=== PATIENT | female | born 1950 | race Two or more races ===

== ENCOUNTER 2021-07-12 19:01 | Inpatient (IN) | payer OTHER ==
[~2021-07-12] VITALS: Ht 170.2 cm; Wt 59.0 kg
[~2021-07-12 19:01] MED LIST: ALPR1TAB7; CARI350T22; HYDR500T13; LEVO50TA7; ZOLP10TA6
[2021-07-12] MEDS ORDERED: ACETAMINOPHEN 500 MG TAB PO ONE (19:30)
[2021-07-12] MEDS ORDERED: SODIUM CHLORIDE 0.9% 1,000 ML IV ONE (19:30)
[2021-07-12 20:16] LABS: Basophils # (auto) 0 10 ^3/uL (0-0.2); Basophils % (auto) 0.3 % (0.0-2.0); Eosinophils # (auto) 0 10 ^3/uL (0-0.8); Hematocrit 30.2 % (36.0-46.0); Hemoglobin 10.1 g/dL (12.2-16.2); Lymphocytes # (auto) 0.4 10 ^3/uL (0.4-5.4); Lymphocytes % (auto) 4.4 % (10.0-50.0); Mean Corpuscular Hemoglobin 30.9 pg (28.0-32.0); Mean Corpuscular Hgb Conc. 33.3 g/dL (32.0-36.0); Mean Corpuscular Volume 92.8 fL (80.0-100.0); Monocytes # (auto) 0.6 10 ^3/uL (0-1.3); Monocytes % (auto) 7.2 % (0.0-12.0); Neutrophils # (auto) 7.6 10 ^3/uL (1.6-8.6); Neutrophils % (auto) 88.1 % (37.0-80.0); Nucleated Red Blood Cells % 0.1 %; Red Blood Cells 3.26 10^6/uL (4.0-5.20); Red Cell Distribution Width 13.4 % (11.8-14.3); White Blood Cell 8.6 10^3/uL (4.4-10.8)
[2021-07-12 20:19] LABS: Albumin 2.9 g/dL (3.4-5.0); Calcium 8.1 mg/dL (8.5-10.1); Potassium 4.2 mmol/L (3.5-5.1)
[2021-07-12 20:22] LABS: BUN/Creatinine Ratio 14.3; Bilirubin, Total 0.6 mg/dL (0.2-1.0)
[2021-07-12] MEDS ORDERED: ACETAMINOPHEN 650 mg PER 20.3 mL UD PO ONE (20:30)
[2021-07-12 22:16] LABS: Urine Bacteria NONE SEEN /hpf (None Seen); Urine Blood 1+ /uL (Negative); Urine Specific Gravity 1.007 (1.001-1.035); Urine WBC <1 /hpf (0 - 5)
[2021-07-12 22:30] LABS: Amphetamine Screen, Urine NEGATIVE (NEGATIVE); Barbiturate Scree,Urine NEGATIVE (NEGATIVE); Benzodiazephine Screen, Urine POSITIVE (NEGATIVE); Cannabinoid Screen, Urine NEGATIVE (NEGATIVE); Cocaine Screen, Urine NEGATIVE (NEGATIVE); Opiate Scree,Urine POSITIVE (NEGATIVE); Phencyclidine Screen, Urine NEGATIVE (NEGATIVE)
[2021-07-12] MEDS ORDERED: levoFLOXacin 500MG 100 ML IV ONE (23:45)
[2021-07-13] MEDS ORDERED: ASPirin-EC 325mg tab PO ONE (05:00)
[2021-07-13] MEDS: levoFLOXacin 500MG 100 ML IV ONE (05:00)
[2021-07-13] MEDS ORDERED: ALPRAZolam 0.5 MG TAB PO ONE (06:00)
[2021-07-13] MEDS ORDERED: NITROGLYCERIN 0.4 MG SL TAB SL PRN (09:15)
[2021-07-13] MEDS ORDERED: MORPHINE SULFATE INJECTION 2 MG/ML SYRG IV PRN ×2 (09:15→09:45)
[2021-07-13] MEDS ORDERED: DexAMETHasone INJECTION 10 MG in D5W 5% 50 ML IV ONE (09:45)
[2021-07-13] MEDS: SODIUM CHLORIDE 0.9% 1,000 ML IV SCH ×2 (09:45→23:05)
[2021-07-13] MEDS ORDERED: traMADol HCL 50 MG TAB PO PRN (09:45)
[2021-07-13] MEDS ORDERED: ALBUTEROL SULF HFA 90MCG INH 200DOSE IN PRN (09:45)
[2021-07-13] MEDS ORDERED: ENOXAPARIN SOD 60 MG/0.6 ML SYRINGE SC ONE (09:45)
[2021-07-13] MEDS ORDERED: ACETAMINOPHEN 500 MG TAB PO PRN (09:45)
[2021-07-13] MEDS ORDERED: ONDANSETRON HCL 4 MG/2 ML VIAL IV PRN (09:45)
[2021-07-13] MEDS ORDERED: LACTULOSE 20Gm/30ML SOLN PO PRN (09:45)
[2021-07-13] MEDS ORDERED: IOHEXOL 350 MG/ML 100ML IJ ONE (09:55)
[2021-07-13] MEDS: AZITHROMYCIN 500MG/ 250ML 250 ML IV SCH ×2 (10:00→12:09)
[2021-07-13] MEDS ORDERED: BUDESONIDE (INHALATION) 180 MCG IH IN SCH (10:00)
[2021-07-13] MEDS ORDERED: ENOXAPARIN SOD 40 MG/0.4 ML SYRINGE SC SCH (10:00)
[2021-07-13] MEDS: cefTRIAXone 1GM/50ML D5W 50 ML IV SCH (10:09)
[2021-07-13 11:16] VITALS: BP 134/68
[2021-07-13] MEDS: ASCORBIC ACID 1,000 MG TAB PO SCH (11:56)
[2021-07-13] MEDS: DexAMETHasone SOD PHOS 10MG/1ML VIAL INJ IV SCH (11:57)
[2021-07-13] MEDS: CHOLECALCIFEROL (VITD3) 2,000 UNIT CAP/TAB PO SCH (11:57)
[2021-07-13] MEDS: IVERMECTIN 3 MG TAB PO SCH (12:12)
[2021-07-13] MEDS: FLORASTOR (S. BOULARDII) 250 MG CAP PO SCH ×2 (12:14→21:41)
[2021-07-13] MEDS: ASPirin 81 mg TAB PO SCH (12:15)
[2021-07-13] MEDS: ZINC SULFATE 220mg CAP or TAB PO SCH (12:15)
[2021-07-13] MEDS: PANTOPRAZOLE 40 MG TAB PO SCH (12:15)
[2021-07-13] MEDS: ENOXAPARIN SOD 60 MG/0.6 ML SYRINGE SC SCH (21:42)
[2021-07-13] MEDS: ATORVASTATIN 20 MG TAB PO SCH (21:42)
[2021-07-14] MEDS: ENOXAPARIN SOD 60 MG/0.6 ML SYRINGE SC SCH (08:16)
[2021-07-14] MEDS: CHOLECALCIFEROL (VITD3) 2,000 UNIT CAP/TAB PO SCH (08:16)
[2021-07-14] MEDS: PANTOPRAZOLE 40 MG TAB PO SCH (08:17)
[2021-07-14] MEDS: IVERMECTIN 3 MG TAB PO SCH (08:17)
[2021-07-14] MEDS: ZINC SULFATE 220mg CAP or TAB PO SCH (08:17)
[2021-07-14] MEDS: ASPirin 81 mg TAB PO SCH (08:18)
[2021-07-14] MEDS: FLORASTOR (S. BOULARDII) 250 MG CAP PO SCH ×2 (08:18→23:33)
[2021-07-14] MEDS: ASCORBIC ACID 1,000 MG TAB PO SCH (08:19)
[2021-07-14] MEDS: cefTRIAXone 1GM/50ML D5W 50 ML IV SCH (08:20)
[2021-07-14] MEDS: SODIUM CHLORIDE 0.9% 1,000 ML IV SCH (08:20)
[2021-07-14] MEDS: DexAMETHasone SOD PHOS 10MG/1ML VIAL INJ IV SCH (08:20)
[2021-07-14 08:28] LABS: Basophils # (auto) 0 10 ^3/uL (0-0.2); Basophils % (auto) 0.1 % (0.0-2.0); Eosinophils # (auto) 0 10 ^3/uL (0-0.8); Eosinophils % (auto) 0.1 % (0.0-7.0); Hematocrit 30.4 % (36.0-46.0); Hemoglobin 10.5 g/dL (12.2-16.2); Lymphocytes # (auto) 1.1 10 ^3/uL (0.4-5.4); Lymphocytes % (auto) 12.1 % (10.0-50.0); Mean Corpuscular Hemoglobin 31.4 pg (28.0-32.0); Mean Corpuscular Hgb Conc. 34.4 g/dL (32.0-36.0); Mean Corpuscular Volume 91.2 fL (80.0-100.0); Monocytes # (auto) 0.9 10 ^3/uL (0-1.3); Monocytes % (auto) 9.8 % (0.0-12.0); Neutrophils % (auto) 77.9 % (37.0-80.0); Nucleated Red Blood Cells % 0.1 %; Red Blood Cells 3.34 10^6/uL (4.0-5.20); Red Cell Distribution Width 13.4 % (11.8-14.3)
[2021-07-14 08:45] LABS: Albumin 2.5 g/dL (3.4-5.0); Calcium 8.9 mg/dL (8.5-10.1); Potassium 3.3 mmol/L (3.5-5.1)
[2021-07-14 08:52] LABS: BUN/Creatinine Ratio 17.8; Bilirubin, Total 0.6 mg/dL (0.2-1.0); Total Protein 6.3 g/dL (6.4-8.2)
[2021-07-14] MEDS: LOPERAMIDE HCL 2 MG CAP PO PRN ×3 (16:37→20:16)
[2021-07-14] MEDS ORDERED: ALPRAZolam 0.5 MG TAB PO PRN (18:30)
[2021-07-14] MEDS ORDERED: ZOLPIDEM TARTRATE 5 MG TAB PO PRN (18:30)
[2021-07-14] MEDS ORDERED: FAMOTIDINE 20 MG TAB PO SCH (22:00)
[2021-07-14] MEDS ORDERED: CHOLESTYRAMINE 4 GM POWDER PO SCH (23:00)
[2021-07-14] MEDS: ATORVASTATIN 20 MG TAB PO SCH (23:33)
[2021-07-15] MEDS: SODIUM CHLORIDE 0.9% 1,000 ML IV SCH (02:19)
[2021-07-15] MEDS: LOPERAMIDE HCL 2 MG CAP PO PRN (04:15)
[2021-07-15 07:39] LABS: Basophils # (auto) 0 10 ^3/uL (0-0.2); Basophils % (auto) 0.1 % (0.0-2.0); Eosinophils # (auto) 0 10 ^3/uL (0-0.8); Eosinophils % (auto) 0.1 % (0.0-7.0); Hemoglobin 10.8 g/dL (12.2-16.2); Lymphocytes % (auto) 12.2 % (10.0-50.0); Mean Corpuscular Hemoglobin 31.6 pg (28.0-32.0); Mean Corpuscular Hgb Conc. 34.9 g/dL (32.0-36.0); Mean Corpuscular Volume 90.6 fL (80.0-100.0); Monocytes # (auto) 0.9 10 ^3/uL (0-1.3); Neutrophils # (auto) 6.5 10 ^3/uL (1.6-8.6); Neutrophils % (auto) 76.6 % (37.0-80.0); Nucleated Red Blood Cells % 0.1 %; Red Blood Cells 3.42 10^6/uL (4.0-5.20); Red Cell Distribution Width 13.3 % (11.8-14.3); White Blood Cell 8.5 10^3/uL (4.4-10.8)
[2021-07-15 07:45] VITALS: BP 142/78
[2021-07-15 07:58] LABS: Calcium 8.8 mg/dL (8.5-10.1); Partial Thromboplastin Time 33.5 sec (23.6-33.0); Potassium 3.4 mmol/L (3.5-5.1)
[2021-07-15 08:02] LABS: BUN/Creatinine Ratio 23.9
[2021-07-15] MEDS ORDERED: LIDOCAINE 2%HCL (LOCAL ANESTH.) INJ 20ML MDV ONE (09:03)
[2021-07-15] MEDS ORDERED: IODIXANOL 320MG/ML 100ML BTL IV ONE (09:03)
[2021-07-15] MEDS ORDERED: fentaNYL CITRATE 100 MCG/2 ML VL ONE (09:13)
[2021-07-15] MEDS ORDERED: HEPARIN SODIUM (PORCINE) 5000 UNITS/ML 1ML VIAL ONE (09:13)
[2021-07-15] MEDS ORDERED: MIDAZOLAM HCL 2MG/2ML 2ml VIAL (1mg/ml) ONE ×2 (09:13→09:35)
[2021-07-15] MEDS ORDERED: VERAPAMIL 2.5MG/ML INJ 2ML VIAL IV ONE (09:13)
[2021-07-15] MEDS ORDERED: SODIUM CHL 0.9% 0 ML ONE (09:13)
[2021-07-15] MEDS ORDERED: ANGIOMAX 250 MG VIAL IV ONE (09:13)
[2021-07-15] MEDS ORDERED: ENOXAPARIN SOD 40 MG/0.4 ML SYRINGE SC SCH (10:00)
[2021-07-15] MEDS ORDERED: ZOLP10TA PO (10:36)
[2021-07-15] MEDS ORDERED: LEVO50CA3 PO (10:36)
[2021-07-15] MEDS ORDERED: CARI350T23 PO (10:45)
[2021-07-15] MEDS ORDERED: ALPR1TAB2 PO (10:45)
[2021-07-15] MEDS ORDERED: ACET-1156 PO (12:49)
== END 2021-07-15 12:45 | disposition home health service (06) | DRG 286 ==
LOC: ER 19:01 → EDBD 19:01 → TELE 07-13 09:40
PROVIDERS: ADMIT Internal Medicine; ATTEND Hospitalist
PROC: 4A023N7 Measurement of Cardiac Sampling and Pressure, Left Heart, Percutaneous Approach (ICD-10-PCS; principal; 2021-07-15)
PROC: B211YZZ Fluoroscopy of Multiple Coronary Arteries using Other Contrast (ICD-10-PCS; 2021-07-15)
PROC: B215YZZ Fluoroscopy of Left Heart using Other Contrast (ICD-10-PCS; 2021-07-15)
DX: I25.10 Atherosclerotic heart disease of native coronary artery without angina pectoris (principal); G92 Toxic encephalopathy; E83.51 Hypocalcemia; R29.6 Repeated falls; F31.9 Bipolar disorder, unspecified; D64.9 Anemia, unspecified; M51.9 Unspecified thoracic, thoracolumbar and lumbosacral intervertebral disc disorder; I07.1 Rheumatic tricuspid insufficiency; E78.5 Hyperlipidemia, unspecified; Z20.822 Contact with and (suspected) exposure to COVID-19; E07.9 Disorder of thyroid, unspecified; F41.9 Anxiety disorder, unspecified
CPT/HCPCS: 36415; 36600; 70450; 70551; 71045; 71275; 72131; 80048; 80053; 80061; 80307; 80320; 81001; 82550; 82728; 82805; 83036; 83605; 83880; 84443; 84484; 85025; 85379; 85610; 85652; 85730; 86141; 87040; 87426; 87493; 93005; 93306; 93458; 93971; 96361; 96365; 99152; G0378; J0696; J1100; J1956; J2250; J7060; Q9967

== ENCOUNTER 2022-02-16 19:29 | Emergency (ER) | payer OTHER ==
[~2022-02-16] VITALS: Ht 165.1 cm; Wt 72.6 kg
[~2022-02-16 19:29] MED LIST changes: +ACET-1156 PO; +ALPR1TAB2 PO; -ALPR1TAB7; -CARI350T22; +CARI350T23 PO; -HYDR500T13; +LEVO50CA3 PO; -LEVO50TA7; +ZOLP10TA PO; -ZOLP10TA6
[2022-02-16 21:06] LABS: Urine Bacteria MOD /hpf (None Seen); Urine Blood 1+ /uL (Negative); Urine Hyaline Cast FEW /lpf (0 - 2); Urine Specific Gravity 1.016 (1.001-1.035); Urine WBC 31 /hpf (0 - 5); Urine WBC Clumps PRESENT /hpf (None Seen)
[2022-02-16 21:11] LABS: Basophils # (auto) 0.1 10 ^3/uL (0-0.2); Basophils % (auto) 1.1 % (0.0-2.0); Eosinophils # (auto) 0 10 ^3/uL (0-0.8); Eosinophils % (auto) 0.1 % (0.0-7.0); Hematocrit 31.2 % (36.0-46.0); Hemoglobin 10.4 g/dL (12.2-16.2); Lymphocytes # (auto) 1.2 10 ^3/uL (0.4-5.4); Mean Corpuscular Hemoglobin 29.6 pg (28.0-32.0); Mean Corpuscular Hgb Conc. 33.3 g/dL (32.0-36.0); Mean Corpuscular Volume 88.9 fL (80.0-100.0); Monocytes # (auto) 0.8 10 ^3/uL (0-1.3); Monocytes % (auto) 10.5 % (0.0-12.0); Neutrophils # (auto) 5.5 10 ^3/uL (1.6-8.6); Neutrophils % (auto) 72.3 % (37.0-80.0); Nucleated Red Blood Cells % 0.1 %; Red Blood Cells 3.51 10^6/uL (4.0-5.20); Red Cell Distribution Width 14.6 % (11.8-14.3); White Blood Cell 7.6 10^3/uL (4.4-10.8)
[2022-02-16 21:16] VITALS: BP 119/75
[2022-02-16 21:25] LABS: Albumin 3.6 g/dL (3.4-5.0); BUN/Creatinine Ratio 10.8; Potassium 4.3 mmol/L (3.5-5.1)
[2022-02-16 21:49] LABS: Bilirubin, Total 0.4 mg/dL (0.2-1.0)
[2022-02-16] MEDS ORDERED: CEPH-509 PO (22:07)
== END 2022-02-16 22:21 | disposition home or self-care (01) ==
LOC: EDBD 19:29 → ER 19:31
DX: R53.1 Weakness (principal); N39.0 Urinary tract infection, site not specified; E03.9 Hypothyroidism, unspecified; E78.5 Hyperlipidemia, unspecified; Z79.899 Other long term (current) drug therapy
CPT/HCPCS: 36415; 71045; 80053; 81001; 84484; 85025; 93005

== ENCOUNTER 2022-02-24 15:49 | Inpatient (IN) | payer OTHER ==
[~2022-02-24] VITALS: Ht 165.1 cm; Wt 59.0 kg
[~2022-02-24 15:49] MED LIST changes: +CEPH-509 PO
[2022-02-24] MEDS ORDERED: SODIUM CHLORIDE 0.9% 500 ML IV ONE (16:00)
[2022-02-24] MEDS ORDERED: SODIUM CHLORIDE 0.9% 1,000 ML IV ONE (16:00)
[2022-02-24 16:34] LABS: Basophils # (auto) 0 10 ^3/uL (0-0.2); Basophils % (auto) 0.7 % (0.0-2.0); Eosinophils # (auto) 0 10 ^3/uL (0-0.8); Eosinophils % (auto) 0.7 % (0.0-7.0); Hematocrit 29.9 % (36.0-46.0); Hemoglobin 9.9 g/dL (12.2-16.2); Lymphocytes # (auto) 1.4 10 ^3/uL (0.4-5.4); Lymphocytes % (auto) 26.4 % (10.0-50.0); Mean Corpuscular Hemoglobin 29.2 pg (28.0-32.0); Mean Corpuscular Hgb Conc. 33.1 g/dL (32.0-36.0); Mean Corpuscular Volume 88.1 fL (80.0-100.0); Monocytes # (auto) 0.6 10 ^3/uL (0-1.3); Monocytes % (auto) 12.3 % (0.0-12.0); Neutrophils # (auto) 3.1 10 ^3/uL (1.6-8.6); Neutrophils % (auto) 59.9 % (37.0-80.0); Red Cell Distribution Width 14.6 % (11.8-14.3); White Blood Cell 5.2 10^3/uL (4.4-10.8)
[2022-02-24 16:56] LABS: Albumin 3.4 g/dL (3.4-5.0); BUN/Creatinine Ratio 7.8; Calcium 8.3 mg/dL (8.5-10.1); Magnesium 1.9 mg/dL (1.6-2.6); Potassium 3.5 mmol/L (3.5-5.1)
[2022-02-24 16:59] LABS: Bilirubin, Total 0.3 mg/dL (0.2-1.0); Total Protein 6.6 g/dL (6.4-8.2)
[2022-02-24] MEDS ORDERED: LABETALOL HCL 5 MG/ML 4ML SYRINGE IV ONE (17:30)
[2022-02-24 18:36] LABS: Urine Bacteria NONE SEEN /hpf (None Seen); Urine Blood Negative /uL (Negative); Urine Specific Gravity 1.014 (1.001-1.035); Urine WBC 1 /hpf (0 - 5)
[2022-02-24] MEDS ORDERED: ACETAMINOPHEN 325 MG TAB PO PRN (21:30)
[2022-02-24] MEDS ORDERED: MORPHINE SULFATE INJECTION 2 MG/ML SYRG IV PRN (21:30)
[2022-02-24] MEDS ORDERED: ONDANSETRON HCL 4 MG/2 ML VIAL IV PRN (21:30)
[2022-02-24] MEDS ORDERED: TEMAZEPAM 15 MG CAP PO PRN (21:30)
[2022-02-24] MEDS ORDERED: NITROGLYCERIN 0.4 MG SL TAB SL PRN (21:30)
[2022-02-24] MEDS ORDERED: cloNIDine HCL 0.1 MG TAB PO PRN (21:30)
[2022-02-24] MEDS ORDERED: ATORVASTATIN 20 MG TAB PO SCH (22:00)
[2022-02-24 22:03] LABS: Hematocrit 30.7 % (36.0-46.0); Hemoglobin 9.9 g/dL (12.2-16.2)
[2022-02-25 05:00] VITALS: BP 143/81
[2022-02-25] MEDS ORDERED: LEVOTHYROXINE SODIUM 50 MCG TAB PO SCH (07:00)
[2022-02-25] MEDS ORDERED: buPROPion HCL 75 MG TAB PO SCH (07:00)
[2022-02-25 08:59] VITALS: BP 148/89
[2022-02-25] MEDS ORDERED: LORazepam 2MG/ML-1ML VIAL IV PRN (09:00)
[2022-02-25] MEDS ORDERED: ENOXAPARIN SOD 40 MG/0.4 ML SYRINGE SC SCH (10:00)
[2022-02-25] MEDS ORDERED: PANTOPRAZOLE 40 MG TAB PO SCH (10:00)
[2022-02-25] MEDS ORDERED: busPIRone HCL 10 MG TAB PO SCH (10:00)
[2022-02-25] MEDS ORDERED: ASPirin 81 mg TAB PO SCH (10:00)
[2022-02-25 13:00] VITALS: BP 151/76
[2022-02-25 14:56] VITALS: BP 151/96
== END 2022-02-25 17:00 | disposition home or self-care (01) | DRG 948 ==
LOC: EDBD 15:49 → ER 15:49 → EDUNIT# 15:49 → TELE 21:17 → TELE-EAST 23:31
PROVIDERS: ADMIT Nurse Practitioner; ATTEND Internal Medicine Geriatric Medicine
DX: R53.1 Weakness (principal); I10 Essential (primary) hypertension; E03.9 Hypothyroidism, unspecified; E78.5 Hyperlipidemia, unspecified; F31.9 Bipolar disorder, unspecified; F43.10 Post-traumatic stress disorder, unspecified; G47.00 Insomnia, unspecified; Z20.822 Contact with and (suspected) exposure to COVID-19; Z82.49 Family history of ischemic heart disease and other diseases of the circulatory system
CPT/HCPCS: 36415; 70450; 70551; 71045; 80053; 81001; 83735; 84484; 85014; 85018; 85025; 93005; 96361; 96374; 97163; G0378; J3490

== ENCOUNTER 2022-06-10 23:33 | Inpatient (IN) | payer OTHER ==
[~2022-06-10] VITALS: Ht 165.1 cm; Wt 67.2 kg
[2022-06-11 00:34] LABS: Basophils # (auto) 0 10 ^3/uL (0-0.2); Basophils % (auto) 0.4 % (0.0-2.0); Eosinophils # (auto) 0.1 10 ^3/uL (0-0.8); Eosinophils % (auto) 0.6 % (0.0-7.0); Hematocrit 20.1 % (36.0-46.0); Lymphocytes # (auto) 0.9 10 ^3/uL (0.4-5.4); Lymphocytes % (auto) 7.1 % (10.0-50.0); Mean Corpuscular Hemoglobin 24.9 pg (28.0-32.0); Mean Corpuscular Hgb Conc. 31.7 g/dL (32.0-36.0); Mean Corpuscular Volume 78.4 fL (80.0-100.0); Monocytes % (auto) 7.6 % (0.0-12.0); Neutrophils # (auto) 10.7 10 ^3/uL (1.6-8.6); Neutrophils % (auto) 84.3 % (37.0-80.0); Red Blood Cells 2.56 10^6/uL (4.0-5.20); Red Cell Distribution Width 15.5 % (11.8-14.3); White Blood Cell 12.7 10^3/uL (4.4-10.8)
[2022-06-11 00:49] LABS: Albumin 2.5 g/dL (3.4-5.0); BUN/Creatinine Ratio 11.4; Calcium 8.2 mg/dL (8.5-10.1); INR 1.06 (0.9-1.15); Magnesium 2.1 mg/dL (1.6-2.6); Partial Thromboplastin Time 37.6 sec (24.6-33.4)
[2022-06-11 00:51] LABS: Bilirubin, Total 0.2 mg/dL (0.2-1.0); Total Protein 6.9 g/dL (6.4-8.2)
[2022-06-11 00:52] LABS: Hemoglobin 6.4 g/dL (12.2-16.2)
[2022-06-11] MEDS ORDERED: AZITHROMYCIN 500MG/ 250ML 250 ML IV ONE (02:15)
[2022-06-11] MEDS ORDERED: cefTRIAXone 1GM/50ML D5W 50 ML IV ONE (02:15)
[2022-06-11] MEDS ORDERED: POTASSIUM CHL 20 Meq TABLET PO ONE (04:30)
[2022-06-11] MEDS ORDERED: MORPHINE SULFATE INJ 2 MG/ml SYRG IV PRN (04:30)
[2022-06-11] MEDS ORDERED: NITROGLYCERIN 0.4 MG SL TAB SL PRN (04:30)
[2022-06-11] MEDS ORDERED: ONDANSETRON HCL 4 MG/2 ML VIAL IV PRN (04:30)
[2022-06-11] MEDS ORDERED: ACETAMINOPHEN 325 MG TAB PO PRN (04:30)
[2022-06-11] MEDS: CARBIDOPA W LEVODOPA 25/100mg TABLET PO SCH ×3 (05:51→21:57)
[2022-06-11 06:13] VITALS: BP 124/76
[2022-06-11 06:28] VITALS: BP 115/63
[2022-06-11] MEDS: buPROPion HCL 75 MG TAB PO SCH ×2 (06:33→19:55)
[2022-06-11] MEDS: LEVOTHYROXINE SODIUM 50 MCG TAB PO SCH (06:33)
[2022-06-11 07:00] VITALS: BP 114/63
[2022-06-11 08:00] VITALS: BP 119/69
[2022-06-11] MEDS: ENOXAPARIN SOD 40 MG/0.4 ML SYRINGE SC SCH (10:00)
[2022-06-11] MEDS: PANTOPRAZOLE 40 MG TAB PO SCH (10:00)
[2022-06-11] MEDS: busPIRone HCL 10 MG TAB PO SCH ×2 (10:00→21:57)
[2022-06-11 16:09] LABS: Basophils # (auto) 0 10 ^3/uL (0-0.2); Basophils % (auto) 0.3 % (0.0-2.0); Hematocrit 22.4 % (36.0-46.0); Monocytes # (auto) 0.9 10 ^3/uL (0-1.3)
[2022-06-11 16:12] LABS: Eosinophils # (auto) 0 10 ^3/uL (0-0.8); Eosinophils % (auto) 0.3 % (0.0-7.0); Lymphocytes # (auto) 0.9 10 ^3/uL (0.4-5.4); Lymphocytes % (auto) 6.9 % (10.0-50.0); Mean Corpuscular Hemoglobin 24.7 pg (28.0-32.0); Mean Corpuscular Hgb Conc. 31.3 g/dL (32.0-36.0); Monocytes % (auto) 6.9 % (0.0-12.0); Neutrophils # (auto) 11.1 10 ^3/uL (1.6-8.6); Neutrophils % (auto) 85.6 % (37.0-80.0); Red Blood Cells 2.83 10^6/uL (4.0-5.20); Red Cell Distribution Width 15.4 % (11.8-14.3)
[2022-06-11] MEDS: AZITHROMYCIN 500MG/ 250ML 250 ML IV SCH (21:57)
[2022-06-11] MEDS: cefTRIAXone 1GM/50ML D5W 50 ML IV SCH (21:57)
[2022-06-11 22:00] VITALS: BP 138/72
[2022-06-11] MEDS ORDERED: GABA300C10 PO (22:26)
[2022-06-11] MEDS ORDERED: BUSP15TA90 PO (22:26)
[2022-06-12 02:52] LABS: Urine Bacteria FEW /hpf (None Seen); Urine Blood Negative /uL (Negative); Urine Specific Gravity 1.006 (1.001-1.035); Urine WBC 2 /hpf (0 - 5)
[2022-06-12 05:00] VITALS: BP 153/86
[2022-06-12] MEDS: CARBIDOPA W LEVODOPA 25/100mg TABLET PO SCH ×3 (06:08→21:39)
[2022-06-12 06:19] LABS: Basophils % (auto) 0.5 % (0.0-2.0); Eosinophils # (auto) 0.1 10 ^3/uL (0-0.8); Eosinophils % (auto) 0.8 % (0.0-7.0); Hematocrit 22.9 % (36.0-46.0); Monocytes % (auto) 9.8 % (0.0-12.0); Red Blood Cells 2.92 10^6/uL (4.0-5.20)
[2022-06-12 06:22] LABS: Basophils # (auto) 0 10 ^3/uL (0-0.2); Hemoglobin 7.4 g/dL (12.2-16.2); Lymphocytes % (auto) 9.2 % (10.0-50.0); Mean Corpuscular Hemoglobin 25.2 pg (28.0-32.0); Mean Corpuscular Hgb Conc. 32.1 g/dL (32.0-36.0); Mean Corpuscular Volume 78.3 fL (80.0-100.0); Neutrophils # (auto) 8.5 10 ^3/uL (1.6-8.6); Neutrophils % (auto) 79.7 % (37.0-80.0); Red Cell Distribution Width 15.5 % (11.8-14.3); White Blood Cell 10.7 10^3/uL (4.4-10.8)
[2022-06-12 06:23] LABS: INR 1.04 (0.9-1.15); Partial Thromboplastin Time 34.4 sec (24.6-33.4)
[2022-06-12] MEDS: LEVOTHYROXINE SODIUM 50 MCG TAB PO SCH (06:33)
[2022-06-12] MEDS: buPROPion HCL 75 MG TAB PO SCH ×2 (06:33→18:46)
[2022-06-12 06:34] LABS: Albumin 2.1 g/dL (3.4-5.0); BUN/Creatinine Ratio 10.3; Calcium 8.3 mg/dL (8.5-10.1); Potassium 3.4 mmol/L (3.5-5.1)
[2022-06-12 06:37] LABS: Bilirubin, Total 0.3 mg/dL (0.2-1.0); Total Protein 6.8 g/dL (6.4-8.2)
[2022-06-12 09:16] VITALS: BP 141/84
[2022-06-12] MEDS: ENOXAPARIN SOD 40 MG/0.4 ML SYRINGE SC SCH (10:00)
[2022-06-12] MEDS: FERROUS SULFATE 325mg EC TAB PO SCH (10:48)
[2022-06-12] MEDS: busPIRone HCL 10 MG TAB PO SCH ×2 (10:48→21:39)
[2022-06-12] MEDS: PANTOPRAZOLE 40 MG TAB PO SCH (10:49)
[2022-06-12 12:27] VITALS: BP 147/82
[2022-06-12] MEDS ORDERED: POTASSIUM CHL 20 Meq TABLET PO ONE (14:30)
[2022-06-12] MEDS: ALPRAZolam 0.25 MG TAB PO PRN (15:17)
[2022-06-12 16:58] VITALS: BP 153/89
[2022-06-12] MEDS: cefTRIAXone 1GM/50ML D5W 50 ML IV SCH (21:19)
[2022-06-12 21:54] VITALS: BP 149/83
[2022-06-12] MEDS: AZITHROMYCIN 500MG/ 250ML 250 ML IV SCH (22:36)
[2022-06-13 05:00] VITALS: BP 152/91
[2022-06-13 05:06] LABS: Basophils # (auto) 0.1 10 ^3/uL (0-0.2); Basophils % (auto) 0.8 % (0.0-2.0); Lymphocytes # (auto) 0.9 10 ^3/uL (0.4-5.4); Monocytes # (auto) 0.8 10 ^3/uL (0-1.3)
[2022-06-13 05:08] LABS: Eosinophils # (auto) 0.1 10 ^3/uL (0-0.8); Eosinophils % (auto) 0.6 % (0.0-7.0); Hemoglobin 7.2 g/dL (12.2-16.2); Lymphocytes % (auto) 9.9 % (10.0-50.0); Mean Corpuscular Hemoglobin 24.5 pg (28.0-32.0); Mean Corpuscular Hgb Conc. 31.5 g/dL (32.0-36.0); Mean Corpuscular Volume 77.9 fL (80.0-100.0); Monocytes % (auto) 8.7 % (0.0-12.0); Neutrophils # (auto) 7.4 10 ^3/uL (1.6-8.6); Red Blood Cells 2.95 10^6/uL (4.0-5.20); Red Cell Distribution Width 15.7 % (11.8-14.3); White Blood Cell 9.3 10^3/uL (4.4-10.8)
[2022-06-13] MEDS: CARBIDOPA W LEVODOPA 25/100mg TABLET PO SCH (05:28)
[2022-06-13 05:34] LABS: BUN/Creatinine Ratio 13.2; Potassium 3.9 mmol/L (3.5-5.1)
[2022-06-13] MEDS: LEVOTHYROXINE SODIUM 50 MCG TAB PO SCH (06:30)
[2022-06-13] MEDS: buPROPion HCL 75 MG TAB PO SCH (06:30)
[2022-06-13 08:00] VITALS: BP 150/80
[2022-06-13] MEDS: ALPRAZolam 0.25 MG TAB PO PRN (09:50)
[2022-06-13] MEDS: FERROUS SULFATE 325mg EC TAB PO SCH (09:50)
[2022-06-13] MEDS: busPIRone HCL 10 MG TAB PO SCH (09:51)
[2022-06-13] MEDS: PANTOPRAZOLE 40 MG TAB PO SCH (09:51)
[2022-06-13] MEDS ORDERED: FER325T PO (12:42)
[2022-06-13] MEDS ORDERED: DOCU-94 PO (12:42)
[2022-06-13] MEDS ORDERED: LEVO500T31 PO (12:42)
[2022-06-13] MEDS ORDERED: PANT40TA2 PO (12:42)
[2022-06-13 13:00] VITALS: BP 146/86
[2022-06-13 15:21] VITALS: BP 146/86
== END 2022-06-13 18:12 | disposition home health service (06) | DRG 193 ==
LOC: ER 23:33 → EDBD 23:33 → EDUNIT# 23:33 → TELE 06-11 04:30 → TELE-WESTW 06-11 21:31
PROVIDERS: ADMIT Nurse Practitioner; ATTEND Internal Medicine Geriatric Medicine
PROC: 30233N1 Transfusion of Nonautologous Red Blood Cells into Peripheral Vein, Percutaneous Approach (ICD-10-PCS; principal; 2022-06-11)
DX: J18.9 Pneumonia, unspecified organism (principal); G93.41 Metabolic encephalopathy; J98.11 Atelectasis; G20 Parkinson's disease; D75.839 Thrombocytosis, unspecified; D64.9 Anemia, unspecified; E78.5 Hyperlipidemia, unspecified; Z96.649 Presence of unspecified artificial hip joint; F31.9 Bipolar disorder, unspecified; E87.6 Hypokalemia; E03.9 Hypothyroidism, unspecified; D50.9 Iron deficiency anemia, unspecified; Z20.822 Contact with and (suspected) exposure to COVID-19
CPT/HCPCS: 36415; 70450; 71045; 71250; 72125; 74176; 80048; 80053; 81001; 82270; 83735; 83880; 84484; 85025; 85610; 85730; 86850; 86900; 86901; 86920; 93005; 96365; 96366; 96368; 96372; 97116; 97163; 97530; G0378; J0696

== ENCOUNTER 2022-06-18 15:01 | Inpatient (IN) | payer OTHER ==
[~2022-06-18] VITALS: Ht 162.6 cm; Wt 63.9 kg
[~2022-06-18 15:01] MED LIST changes: +BUSP15TA90 PO; -CEPH-509 PO; +DOCU-94 PO; +FER325T PO; +GABA300C10 PO; +LEVO500T31 PO; +PANT40TA2 PO
[2022-06-18] MEDS ORDERED: SODIUM CHLORIDE 0.9% 1,000 ML IV ONE (16:45)
[2022-06-18] MEDS ORDERED: SODIUM CHLORIDE 0.9% 500 ML IVB ONE (16:45)
[2022-06-18] MEDS ORDERED: LORazepam 0.5 MG TAB PO ONE (18:30)
[2022-06-18 18:54] LABS: Basophils # (auto) 0.1 10 ^3/uL (0-0.2); Basophils % (auto) 0.7 % (0.0-2.0); Eosinophils # (auto) 0 10 ^3/uL (0-0.8); Eosinophils % (auto) 0.2 % (0.0-7.0); Lymphocytes # (auto) 1.2 10 ^3/uL (0.4-5.4); Mean Corpuscular Hgb Conc. 31.1 g/dL (32.0-36.0); Monocytes # (auto) 0.5 10 ^3/uL (0-1.3); Neutrophils # (auto) 8.2 10 ^3/uL (1.6-8.6)
[2022-06-18 18:57] LABS: Hematocrit 21.9 % (36.0-46.0); Lymphocytes % (auto) 11.6 % (10.0-50.0); Mean Corpuscular Hemoglobin 24.8 pg (28.0-32.0); Mean Corpuscular Volume 79.7 fL (80.0-100.0); Neutrophils % (auto) 82.5 % (37.0-80.0); Nucleated Red Blood Cells % 0.1 %; Red Blood Cells 2.75 10^6/uL (4.0-5.20)
[2022-06-18 19:01] LABS: Hemoglobin 6.8 g/dL (12.2-16.2)
[2022-06-18 19:03] LABS: Urine Bacteria NONE SEEN /hpf (None Seen); Urine Blood Negative /uL (Negative); Urine Specific Gravity 1.007 (1.001-1.035); Urine WBC <1 /hpf (0 - 5)
[2022-06-18 19:12] LABS: Albumin 2.3 g/dL (3.4-5.0); Calcium 8.3 mg/dL (8.5-10.1); Potassium 3.9 mmol/L (3.5-5.1)
[2022-06-18 19:18] LABS: BUN/Creatinine Ratio 9.1; Bilirubin, Total 0.2 mg/dL (0.2-1.0); Total Protein 6.5 g/dL (6.4-8.2)
[2022-06-18 19:19] LABS: Alcohol, Urine < 3.0 mg/dL (0-10); Amphetamine Screen, Urine NEGATIVE (NEGATIVE); Barbiturate Scree,Urine NEGATIVE (NEGATIVE); Benzodiazephine Screen, Urine POSITIVE (NEGATIVE); Cannabinoid Screen, Urine NEGATIVE (NEGATIVE); Cocaine Screen, Urine NEGATIVE (NEGATIVE); Opiate Scree,Urine NEGATIVE (NEGATIVE); Phencyclidine Screen, Urine NEGATIVE (NEGATIVE)
[2022-06-18] MEDS ORDERED: AZITHROMYCIN 500MG/ 250ML 250 ML IV ONE (21:15)
[2022-06-18] MEDS ORDERED: VANCOMYCIN 1GM/250ML 250 ML IV ONE (21:15)
[2022-06-18] MEDS: TEMAZEPAM 15 MG CAP PO PRN (22:16)
[2022-06-19] VITALS (11 sets, daily range): BP systolic 122–152; BP diastolic 75–94
[2022-06-19] MEDS ORDERED: TEMAZEPAM 15 MG CAP PO ONE (01:15)
[2022-06-19] MEDS ORDERED: INFLUENZA QUAD 2021-2022 0.5 ML SYRG IM ONE (04:00)
[2022-06-19] MEDS ORDERED: PNEUMOCOCCAL VACC POLYS 25 MCG/0.5 ML VIAL IM ONE (04:00)
[2022-06-19] MEDS: LEVOTHYROXINE SODIUM 50 MCG TAB PO SCH (06:23)
[2022-06-19 07:02] LABS: Basophils # (auto) 0.1 10 ^3/uL (0-0.2); Eosinophils # (auto) 0.1 10 ^3/uL (0-0.8); Hemoglobin 7.8 g/dL (12.2-16.2); Red Cell Distribution Width 16.3 % (11.8-14.3); White Blood Cell 8.5 10^3/uL (4.4-10.8)
[2022-06-19 07:04] LABS: Basophils % (auto) 1.1 % (0.0-2.0); Eosinophils % (auto) 0.6 % (0.0-7.0); Hematocrit 23.9 % (36.0-46.0); Lymphocytes # (auto) 1.4 10 ^3/uL (0.4-5.4); Lymphocytes % (auto) 16.8 % (10.0-50.0); Mean Corpuscular Hgb Conc. 32.4 g/dL (32.0-36.0); Mean Corpuscular Volume 80.1 fL (80.0-100.0); Monocytes # (auto) 0.9 10 ^3/uL (0-1.3); Monocytes % (auto) 10.1 % (0.0-12.0); Neutrophils # (auto) 6.1 10 ^3/uL (1.6-8.6); Neutrophils % (auto) 71.4 % (37.0-80.0); Red Blood Cells 2.98 10^6/uL (4.0-5.20)
[2022-06-19 07:14] LABS: Albumin 2.2 g/dL (3.4-5.0); BUN/Creatinine Ratio 10.5; Potassium 3.7 mmol/L (3.5-5.1)
[2022-06-19 07:16] LABS: Bilirubin, Total 0.4 mg/dL (0.2-1.0); Total Protein 6.1 g/dL (6.4-8.2)
[2022-06-19] MEDS: cefTRIAXone 1GM/50ML D5W 50 ML IV SCH (09:08)
[2022-06-19] MEDS ORDERED: PANTOPRAZOLE 40 MG TAB PO SCH (10:00)
[2022-06-19] MEDS: AZITHROMYCIN 500MG/ 250ML 250 ML IV SCH (12:15)
[2022-06-19] MEDS ORDERED: ALPRAZolam 0.25 MG TAB PO ONE (15:45)
[2022-06-19] MEDS: ONDANSETRON HCL 4 MG/2 ML VIAL IV PRN (19:52)
[2022-06-19] MEDS: ALPRAZolam 0.25 MG TAB PO PRN (22:21)
[2022-06-20 05:00] VITALS: BP 140/70
[2022-06-20 05:18] LABS: Basophils # (auto) 0.1 10 ^3/uL (0-0.2); Eosinophils # (auto) 0.1 10 ^3/uL (0-0.8); Hemoglobin 8.5 g/dL (12.2-16.2); Lymphocytes # (auto) 1.3 10 ^3/uL (0.4-5.4); Red Cell Distribution Width 16.3 % (11.8-14.3)
[2022-06-20 05:19] LABS: Basophils % (auto) 0.9 % (0.0-2.0); Hematocrit 26.8 % (36.0-46.0); Mean Corpuscular Hemoglobin 25.6 pg (28.0-32.0); Mean Corpuscular Hgb Conc. 31.8 g/dL (32.0-36.0); Mean Corpuscular Volume 80.4 fL (80.0-100.0); Monocytes # (auto) 0.8 10 ^3/uL (0-1.3); Monocytes % (auto) 10.4 % (0.0-12.0); Neutrophils # (auto) 5.8 10 ^3/uL (1.6-8.6); Neutrophils % (auto) 71.7 % (37.0-80.0); Red Blood Cells 3.33 10^6/uL (4.0-5.20); White Blood Cell 8.2 10^3/uL (4.4-10.8)
[2022-06-20 05:37] LABS: BUN/Creatinine Ratio 7.1; Calcium 8.3 mg/dL (8.5-10.1); Magnesium 1.9 mg/dL (1.6-2.6); Potassium 3.6 mmol/L (3.5-5.1)
[2022-06-20] MEDS: LEVOTHYROXINE SODIUM 50 MCG TAB PO SCH (06:25)
[2022-06-20 08:00] VITALS: BP 140/70
[2022-06-20 08:25] LABS: INR 1.04 (0.9-1.15); Partial Thromboplastin Time 33.3 sec (24.6-33.4)
[2022-06-20] MEDS: cefTRIAXone 1GM/50ML D5W 50 ML IV SCH (08:30)
[2022-06-20] MEDS ORDERED: diphenhdrAMINE HCL 50 MG/1 ML VL ONE (08:38)
[2022-06-20] MEDS ORDERED: fentaNYL CITRATE 100 MCG/2 ML VL ONE (08:38)
[2022-06-20] MEDS ORDERED: MIDAZOLAM HCL 5 MG/ML-1ML VIAL ONE (08:38)
[2022-06-20] MEDS ORDERED: LIDOCAINE VISCOUS 2% 15ML UD ONE (08:46)
[2022-06-20 09:00] VITALS: BP 128/74
[2022-06-20] MEDS: PANTOPRAZOLE 40 MG TAB PO SCH ×2 (09:50→21:42)
[2022-06-20] MEDS: AZITHROMYCIN 500MG/ 250ML 250 ML IV SCH (09:50)
[2022-06-20 13:00] VITALS: BP 122/70
[2022-06-20] MEDS: ALPRAZolam 0.25 MG TAB PO PRN (16:25)
[2022-06-20 16:49] VITALS: BP 141/76
[2022-06-20] MEDS: TEMAZEPAM 15 MG CAP PO PRN (21:42)
[2022-06-20 21:53] VITALS: BP 132/72
[2022-06-21 04:39] VITALS: BP 142/82
[2022-06-21 05:03] LABS: Basophils # (auto) 0.1 10 ^3/uL (0-0.2); Basophils % (auto) 0.9 % (0.0-2.0); Eosinophils # (auto) 0.1 10 ^3/uL (0-0.8); Eosinophils % (auto) 0.9 % (0.0-7.0); Monocytes # (auto) 0.8 10 ^3/uL (0-1.3); Red Cell Distribution Width 16.3 % (11.8-14.3)
[2022-06-21 05:08] LABS: Hematocrit 27.3 % (36.0-46.0); Hemoglobin 8.6 g/dL (12.2-16.2); Lymphocytes # (auto) 1.5 10 ^3/uL (0.4-5.4); Lymphocytes % (auto) 19.9 % (10.0-50.0); Mean Corpuscular Hemoglobin 25.3 pg (28.0-32.0); Mean Corpuscular Hgb Conc. 31.5 g/dL (32.0-36.0); Mean Corpuscular Volume 80.1 fL (80.0-100.0); Monocytes % (auto) 10.6 % (0.0-12.0); Neutrophils # (auto) 5.2 10 ^3/uL (1.6-8.6); Neutrophils % (auto) 67.7 % (37.0-80.0); Red Blood Cells 3.41 10^6/uL (4.0-5.20); White Blood Cell 7.7 10^3/uL (4.4-10.8)
[2022-06-21 05:30] LABS: BUN/Creatinine Ratio 9.7; Calcium 8.5 mg/dL (8.5-10.1); Magnesium 2.1 mg/dL (1.6-2.6)
[2022-06-21] MEDS: LEVOTHYROXINE SODIUM 50 MCG TAB PO SCH (06:30)
[2022-06-21] MEDS: ALPRAZolam 0.25 MG TAB PO PRN ×2 (06:35→14:39)
[2022-06-21 08:30] VITALS: BP 131/89
[2022-06-21] MEDS: cefTRIAXone 1GM/50ML D5W 50 ML IV SCH (10:29)
[2022-06-21] MEDS: PANTOPRAZOLE 40 MG TAB PO SCH ×2 (10:30→21:44)
[2022-06-21] MEDS: ONDANSETRON HCL 4 MG/2 ML VIAL IV PRN (10:30)
[2022-06-21] MEDS: AZITHROMYCIN 500MG/ 250ML 250 ML IV SCH (11:25)
[2022-06-21 13:01] VITALS: BP 132/81
[2022-06-21 17:11] VITALS: BP 132/95
[2022-06-21] MEDS: ACETAMINOPHEN 325 MG TAB PO PRN (19:03)
[2022-06-21] MEDS: TEMAZEPAM 15 MG CAP PO PRN (21:44)
[2022-06-21 22:00] VITALS: BP 116/72
[2022-06-22] MEDS: ACETAMINOPHEN 325 MG TAB PO PRN ×2 (01:27→16:33)
[2022-06-22 05:00] VITALS: BP 128/75
[2022-06-22] MEDS: ONDANSETRON HCL 4 MG/2 ML VIAL IV PRN (05:30)
[2022-06-22] MEDS: ALPRAZolam 0.25 MG TAB PO PRN ×2 (05:31→16:33)
[2022-06-22] MEDS: LEVOTHYROXINE SODIUM 50 MCG TAB PO SCH (06:09)
[2022-06-22 06:33] LABS: Basophils # (auto) 0.1 10 ^3/uL (0-0.2); Lymphocytes # (auto) 1.4 10 ^3/uL (0.4-5.4)
[2022-06-22 06:35] LABS: Basophils % (auto) 1.1 % (0.0-2.0); Eosinophils # (auto) 0.1 10 ^3/uL (0-0.8); Hematocrit 28.2 % (36.0-46.0); Hemoglobin 8.8 g/dL (12.2-16.2); Lymphocytes % (auto) 19.3 % (10.0-50.0); Mean Corpuscular Hgb Conc. 31.1 g/dL (32.0-36.0); Mean Corpuscular Volume 80.5 fL (80.0-100.0); Monocytes # (auto) 0.8 10 ^3/uL (0-1.3); Monocytes % (auto) 10.9 % (0.0-12.0); Neutrophils # (auto) 4.8 10 ^3/uL (1.6-8.6); Neutrophils % (auto) 67.7 % (37.0-80.0); Red Cell Distribution Width 16.8 % (11.8-14.3); White Blood Cell 7.1 10^3/uL (4.4-10.8)
[2022-06-22] MEDS ORDERED: GOLYTELY 4L KIT PO ONE (09:00)
[2022-06-22] MEDS: cefTRIAXone 1GM/50ML D5W 50 ML IV SCH (09:08)
[2022-06-22 09:11] VITALS: BP 123/66
[2022-06-22] MEDS ORDERED: GOLYTELY 4L KIT ONE (09:36)
[2022-06-22] MEDS: AZITHROMYCIN 500MG/ 250ML 250 ML IV SCH (10:17)
[2022-06-22] MEDS: PANTOPRAZOLE 40 MG TAB PO SCH ×2 (10:17→21:56)
[2022-06-22 16:50] VITALS: BP 116/70
[2022-06-22 20:00] VITALS: BP 134/91
[2022-06-22] MEDS: TEMAZEPAM 15 MG CAP PO PRN (21:57)
[2022-06-23] MEDS: LEVOTHYROXINE SODIUM 50 MCG TAB PO SCH (06:55)
[2022-06-23] MEDS ORDERED: SODIUM CHLORIDE LOCK 10 ML ONE (07:43)
[2022-06-23] MEDS ORDERED: diphenhdrAMINE HCL 50 MG/1 ML VL ONE (07:44)
[2022-06-23 08:00] VITALS: BP 119/70
[2022-06-23] MEDS: MIDAZOLAM HCL 5 MG/ML-1ML VIAL ONE ×4 (08:18→08:36)
[2022-06-23] MEDS: fentaNYL CITRATE 100 MCG/2 ML VL ONE ×3 (08:18→08:24)
[2022-06-23 09:00] VITALS: BP 119/70
[2022-06-23] MEDS: cefTRIAXone 1GM/50ML D5W 50 ML IV SCH (09:58)
[2022-06-23] MEDS: ACETAMINOPHEN 325 MG TAB PO PRN ×2 (09:59→18:30)
[2022-06-23] MEDS: ALPRAZolam 0.25 MG TAB PO PRN ×2 (09:59→18:29)
[2022-06-23] MEDS: PANTOPRAZOLE 40 MG TAB PO SCH ×2 (09:59→21:57)
[2022-06-23 10:00] VITALS: BP 135/77
[2022-06-23 13:00] VITALS: BP 131/75
[2022-06-23 17:00] VITALS: BP 110/57
[2022-06-23] MEDS: TEMAZEPAM 15 MG CAP PO PRN (21:57)
[2022-06-23 22:00] VITALS: BP 123/64
[2022-06-24 05:00] VITALS: BP 107/74
[2022-06-24 05:12] LABS: Basophils # (auto) 0.1 10 ^3/uL (0-0.2); Eosinophils # (auto) 0.1 10 ^3/uL (0-0.8); Hemoglobin 9.2 g/dL (12.2-16.2); Monocytes # (auto) 0.8 10 ^3/uL (0-1.3)
[2022-06-24 05:15] LABS: Basophils % (auto) 0.8 % (0.0-2.0); Hematocrit 29.1 % (36.0-46.0); Lymphocytes # (auto) 1.3 10 ^3/uL (0.4-5.4); Lymphocytes % (auto) 16.8 % (10.0-50.0); Mean Corpuscular Hemoglobin 25.6 pg (28.0-32.0); Mean Corpuscular Hgb Conc. 31.7 g/dL (32.0-36.0); Monocytes % (auto) 10.8 % (0.0-12.0); Neutrophils # (auto) 5.5 10 ^3/uL (1.6-8.6); Neutrophils % (auto) 70.6 % (37.0-80.0); Red Blood Cells 3.59 10^6/uL (4.0-5.20); Red Cell Distribution Width 16.9 % (11.8-14.3); White Blood Cell 7.8 10^3/uL (4.4-10.8)
[2022-06-24 05:38] LABS: BUN/Creatinine Ratio 6.1; Calcium 8.8 mg/dL (8.5-10.1); Magnesium 2.1 mg/dL (1.6-2.6); Potassium 3.8 mmol/L (3.5-5.1)
[2022-06-24] MEDS: LEVOTHYROXINE SODIUM 50 MCG TAB PO SCH (06:11)
[2022-06-24 08:10] VITALS: BP 125/76
[2022-06-24] MEDS: cefTRIAXone 1GM/50ML D5W 50 ML IV SCH (08:38)
[2022-06-24] MEDS: ALPRAZolam 0.25 MG TAB PO PRN (08:38)
[2022-06-24 09:00] VITALS: BP 125/76
[2022-06-24] MEDS: PANTOPRAZOLE 40 MG TAB PO SCH (09:35)
[2022-06-24 13:00] VITALS: BP 136/73
[2022-06-24 13:24] VITALS: BP 136/73
== END 2022-06-24 15:09 | disposition home or self-care (01) | DRG 811 ==
LOC: EDBD 15:01 → ER 15:01 → OVERFLOW 21:29 → WEST WING 22:51
PROVIDERS: ADMIT Nurse Practitioner; ATTEND Internal Medicine Geriatric Medicine
PROC: 30233N1 Transfusion of Nonautologous Red Blood Cells into Peripheral Vein, Percutaneous Approach (ICD-10-PCS; 2022-06-19)
PROC: 0DB68ZX Excision of Stomach, Via Natural or Artificial Opening Endoscopic, Diagnostic (ICD-10-PCS; principal; 2022-06-20 08:53)
PROC: 0DBL8ZX Excision of Transverse Colon, Via Natural or Artificial Opening Endoscopic, Diagnostic (ICD-10-PCS; 2022-06-23)
DX: D50.9 Iron deficiency anemia, unspecified (principal); G93.41 Metabolic encephalopathy; J18.9 Pneumonia, unspecified organism; K92.2 Gastrointestinal hemorrhage, unspecified; E03.9 Hypothyroidism, unspecified; E78.5 Hyperlipidemia, unspecified; E87.6 Hypokalemia; F31.9 Bipolar disorder, unspecified; F41.9 Anxiety disorder, unspecified; I25.9 Chronic ischemic heart disease, unspecified; K63.5 Polyp of colon; Z53.29 Procedure and treatment not carried out because of patient's decision for other reasons; G20 Parkinson's disease; Z88.0 Allergy status to penicillin; Z88.8 Allergy status to other drugs, medicaments and biological substances
CPT/HCPCS: 36415; 70450; 71045; 80048; 80053; 80307; 81001; 83735; 84443; 84484; 85025; 85610; 85730; 86850; 86900; 86901; 86920; 87081; 93005; 96361; 96365; 96368; 97163; G0378; J0696; J2250; J2405

== ENCOUNTER 2022-07-01 00:49 | Emergency (ER) | payer OTHER ==
[~2022-07-01] VITALS: Ht 170.2 cm; Wt 56.0 kg
[2022-07-01 01:52] LABS: Basophils # (auto) 0.1 10 ^3/uL (0-0.2); Eosinophils # (auto) 0.1 10 ^3/uL (0-0.8); Hemoglobin 7.7 g/dL (12.2-16.2); Lymphocytes # (auto) 1.1 10 ^3/uL (0.4-5.4)
[2022-07-01 01:54] LABS: Basophils % (auto) 0.9 % (0.0-2.0); Eosinophils % (auto) 0.8 % (0.0-7.0); Hematocrit 24.1 % (36.0-46.0); Lymphocytes % (auto) 11.6 % (10.0-50.0); Mean Corpuscular Hemoglobin 26.1 pg (28.0-32.0); Mean Corpuscular Hgb Conc. 31.9 g/dL (32.0-36.0); Mean Corpuscular Volume 81.7 fL (80.0-100.0); Monocytes % (auto) 10.6 % (0.0-12.0); Neutrophils # (auto) 7.2 10 ^3/uL (1.6-8.6); Neutrophils % (auto) 76.1 % (37.0-80.0); Red Blood Cells 2.95 10^6/uL (4.0-5.20); Red Cell Distribution Width 16.8 % (11.8-14.3); White Blood Cell 9.4 10^3/uL (4.4-10.8)
[2022-07-01 02:11] LABS: Albumin 2.9 g/dL (3.4-5.0); Calcium 8.4 mg/dL (8.5-10.1); Potassium 3.9 mmol/L (3.5-5.1)
[2022-07-01 02:13] LABS: BUN/Creatinine Ratio 15.8
[2022-07-01 02:15] LABS: Bilirubin, Total 0.2 mg/dL (0.2-1.0); Total Protein 6.7 g/dL (6.4-8.2)
[2022-07-01 09:57] VITALS: BP 124/67
== END 2022-07-01 10:40 | disposition short-term general hospital (02) ==
LOC: ER 00:49 → EDBD 00:49 → ER 10:40
DX: S12.100A Unspecified displaced fracture of second cervical vertebra, initial encounter for closed fracture (principal); E03.9 Hypothyroidism, unspecified; E78.5 Hyperlipidemia, unspecified; Z79.2 Long term (current) use of antibiotics; Z79.899 Other long term (current) drug therapy; Z88.0 Allergy status to penicillin; Z88.8 Allergy status to other drugs, medicaments and biological substances; Z20.822 Contact with and (suspected) exposure to COVID-19; W18.39XA Other fall on same level, initial encounter; Y93.89 Activity, other specified; Y92.89 Other specified places as the place of occurrence of the external cause; Y99.8 Other external cause status
CPT/HCPCS: 36415; 70450; 71250; 72125; 74176; 80053; 84484; 85025; 93005

== ENCOUNTER 2022-07-31 06:52 | Emergency (ER) | payer OTHER ==
[~2022-07-31] VITALS: Ht 170.2 cm; Wt 61.0 kg
[2022-07-31 08:17] LABS: Basophils # (auto) 0 10 ^3/uL (0-0.2); Eosinophils # (auto) 0 10 ^3/uL (0-0.8); Hematocrit 30.1 % (36.0-46.0); Hemoglobin 9.3 g/dL (12.2-16.2); Lymphocytes # (auto) 1.1 10 ^3/uL (0.4-5.4); Monocytes # (auto) 0.6 10 ^3/uL (0-1.3); Monocytes % (auto) 12.8 % (0.0-12.0); White Blood Cell 4.8 10^3/uL (4.4-10.8)
[2022-07-31 08:19] LABS: Basophils % (auto) 0.8 % (0.0-2.0); Lymphocytes % (auto) 22.8 % (10.0-50.0); Mean Corpuscular Hemoglobin 25.2 pg (28.0-32.0); Mean Corpuscular Volume 81.2 fL (80.0-100.0); Neutrophils % (auto) 62.6 % (37.0-80.0); Red Blood Cells 3.71 10^6/uL (4.0-5.20); Red Cell Distribution Width 18.1 % (11.8-14.3)
[2022-07-31 08:45] LABS: Albumin 3.7 g/dL (3.4-5.0); Calcium 8.6 mg/dL (8.5-10.1); Potassium 4.3 mmol/L (3.5-5.1)
[2022-07-31 08:48] LABS: BUN/Creatinine Ratio 9.3; Bilirubin, Total 0.6 mg/dL (0.2-1.0); Total Protein 7.2 g/dL (6.4-8.2)
[2022-07-31 12:32] VITALS: BP 152/93
== END 2022-07-31 12:38 | disposition home or self-care (01) ==
LOC: ER 06:52 → EDBD 06:52 → ER 12:21
DX: S09.90XA Unspecified injury of head, initial encounter (principal); E78.5 Hyperlipidemia, unspecified; E03.9 Hypothyroidism, unspecified; Z79.899 Other long term (current) drug therapy; Z88.0 Allergy status to penicillin; Z88.8 Allergy status to other drugs, medicaments and biological substances; W18.39XA Other fall on same level, initial encounter; Y93.89 Activity, other specified; Y92.89 Other specified places as the place of occurrence of the external cause; Y99.8 Other external cause status
CPT/HCPCS: 36415; 70450; 72170; 80053; 84484; 85025

== ENCOUNTER 2023-01-26 05:25 | Emergency (ER) | payer OTHER ==
[~2023-01-26] VITALS: Ht 167.6 cm; Wt 59.0 kg
[2023-01-26 07:30] VITALS: BP 122/73
[2023-01-26] MEDS ORDERED: ACET1CAP14 PO (07:38)
[2023-01-26] MEDS ORDERED: ACETAMINOPHEN 500 MG TAB PO ONE (07:45)
== END 2023-01-26 09:52 | disposition home or self-care (01) ==
LOC: ER 05:25 → EDBD 05:25 → ER 09:52
DX: S83.91XA Sprain of unspecified site of right knee, initial encounter (principal); S00.03XA Contusion of scalp, initial encounter; M54.2 Cervicalgia; E78.5 Hyperlipidemia, unspecified; Z88.0 Allergy status to penicillin; Z88.6 Allergy status to analgesic agent; W01.0XXA Fall on same level from slipping, tripping and stumbling without subsequent striking against object, initial encounter; Y93.01 Activity, walking, marching and hiking; Y92.89 Other specified places as the place of occurrence of the external cause; Y99.8 Other external cause status
CPT/HCPCS: 70450; 72040; 73562

== ENCOUNTER 2023-10-03 07:00 | Inpatient (IN) | payer OTHER ==
[~2023-10-03] VITALS: Ht 165.1 cm; Wt 54.0 kg
[~2023-10-03 07:00] MED LIST changes: -ACET-1156 PO; +ACET-1881 PO; +ACET1CAP14 PO; -CARI350T23 PO; +CARI350T28 PO; +GABA-1250 PO; -GABA300C10 PO
[2023-10-03] MEDS ORDERED: SODIUM CHLORIDE 0.9% 500 ML IVB ONE (07:30)
[2023-10-03 08:00] VITALS: PULSE 77; RESP 19; O2SAT 96
[2023-10-03 08:18] LABS: Basophils # (auto) 0 10 ^3/uL (0-0.2); Basophils % (auto) 0.5 % (0.0-2.0); Eosinophils # (auto) 0.1 10 ^3/uL (0-0.8); Eosinophils % (auto) 2.2 % (0.0-7.0); Hematocrit 30.7 % (36.0-46.0); Hemoglobin 10.1 g/dL (12.2-16.2); Lymphocytes # (auto) 1.5 10 ^3/uL (0.4-5.4); Lymphocytes % (auto) 25.2 % (10.0-50.0); Mean Corpuscular Hemoglobin 30.4 pg (28.0-32.0); Mean Corpuscular Hgb Conc. 32.9 g/dL (32.0-36.0); Mean Corpuscular Volume 92.2 fL (80.0-100.0); Monocytes # (auto) 0.6 10 ^3/uL (0-1.3); Monocytes % (auto) 10.9 % (0.0-12.0); Neutrophils # (auto) 3.6 10 ^3/uL (1.6-8.6); Neutrophils % (auto) 61.2 % (37.0-80.0); Red Blood Cells 3.33 10^6/uL (4.0-5.20); Red Cell Distribution Width 15.4 % (11.8-14.3); White Blood Cell 5.8 10^3/uL (4.4-10.8)
[2023-10-03 08:28] LABS: Alanine Aminotransferase 12 U/L (7-40); Albumin 3.8 g/dL (3.2-4.8); Anion Gap 4 (5-15); Aspartate Aminotransferase 15 U/L (13-40); BUN/Creatinine Ratio 9.1 (10.0-20.0); Bilirubin, Total 0.4 mg/dL (0.2-1.0); Blood Urea Nitrogen 8 mg/dL (9-23); Calcium 8.5 mg/dL (8.5-10.1); Carbon Dioxide 29 mmol/L (20-30); Chloride 98 mmol/L (98-107); Glucose 95 mg/dL (74-106); Potassium 3.5 mmol/L (3.5-5.1); Sodium 131 mmol/L (136-145); Total Protein 5.8 g/dL (5.7-8.2)
[2023-10-03 08:38] LABS: INR 0.98 (0.9-1.15); Partial Thromboplastin Time 32.5 SEC (24.5-34.5); Prothrombin Time 10.3 sec (9.3-11.8)
[2023-10-03 09:25] LABS: Alkaline Phosphatase 65 U/L (46-116); Lipase 30 U/L (12-53)
[2023-10-03 10:33] LABS: Urine Bacteria FEW /hpf (None Seen); Urine Blood Negative /uL (Negative); Urine Clarity HAZY (Clear); Urine Protein, UAD Negative (Negative); Urine Specific Gravity 1.004 (1.001-1.035); Urine Urobilinogen Normal (Negative); Urine WBC 130 /hpf (0 - 5); Urine WBC Clumps PRESENT /hpf (None Seen); Urine pH 6.5 (5.0-8.0)
[2023-10-03 10:37] LABS: Urine Color Yellow (Yellow)
[2023-10-03] MEDS ORDERED: cefTRIAXone 1GM/50ML D5W 50 ML IV ONE (12:00)
[2023-10-03] MEDS ORDERED: ONDANSETRON HCL 4 MG/2 ML VIAL IV PRN (13:45)
[2023-10-03] MEDS ORDERED: MORPHINE SULFATE INJ 2 MG/ml SYRG IV PRN ×2 (13:45)
[2023-10-03] MEDS ORDERED: NITROGLYCERIN 0.4 MG SL TAB SL PRN ×2 (13:45)
[2023-10-03] MEDS ORDERED: SODIUM CHLORIDE 0.9% 1,000 ML IV ONE (13:45)
[2023-10-03] MEDS: ALPRAZolam 0.25 MG TAB PO PRN ×2 (14:22→21:02)
[2023-10-03] MEDS: GABAPENTIN 300 MG CAP PO SCH ×2 (14:22→22:25)
[2023-10-03] MEDS: ACETAMINOPHEN 325 MG TAB PO PRN (19:57)
[2023-10-03 20:05] VITALS: PULSE 88; RESP 16; O2SAT 96
[2023-10-03] MEDS: lamoTRIgine 25 MG TAB PO SCH (22:24)
[2023-10-03] MEDS: CIPROFLOXACIN HYDROCHLORIDE 250 MG TAB PO SCH (22:25)
[2023-10-03] MEDS: ZOLPIDEM TARTRATE 5 MG TAB PO PRN (23:39)
[2023-10-04 04:55] LABS: Chloride 99 mmol/L (98-107); Potassium 3.7 mmol/L (3.5-5.1); Sodium 130 mmol/L (136-145)
[2023-10-04 04:56] LABS: Anion Gap 4 (5-15); Carbon Dioxide 27 mmol/L (20-30)
[2023-10-04 04:57] LABS: Calcium 8.2 mg/dL (8.5-10.1)
[2023-10-04 05:01] LABS: Glucose 86 mg/dL (74-106); Triglycerides 85 mg/dL (< 150)
[2023-10-04 05:02] LABS: BUN/Creatinine Ratio 7.9 (10.0-20.0); Blood Urea Nitrogen 6 mg/dL (9-23); LDL Cholesterol 60 mg/dL (< 100)
[2023-10-04 05:03] LABS: Cholesterol 129 mg/dL (< 200); HDL Cholesterol 55 mg/dL (40-59)
[2023-10-04 05:07] LABS: Basophils # (auto) 0 10 ^3/uL (0-0.2); Basophils % (auto) 0.7 % (0.0-2.0); Eosinophils # (auto) 0.2 10 ^3/uL (0-0.8); Eosinophils % (auto) 2.7 % (0.0-7.0); Hematocrit 29.2 % (36.0-46.0); Hemoglobin 9.8 g/dL (12.2-16.2); Lymphocytes # (auto) 1.8 10 ^3/uL (0.4-5.4); Lymphocytes % (auto) 30.7 % (10.0-50.0); Mean Corpuscular Hgb Conc. 33.6 g/dL (32.0-36.0); Mean Corpuscular Volume 92.1 fL (80.0-100.0); Monocytes # (auto) 0.7 10 ^3/uL (0-1.3); Monocytes % (auto) 11.6 % (0.0-12.0); Neutrophils # (auto) 3.2 10 ^3/uL (1.6-8.6); Neutrophils % (auto) 54.3 % (37.0-80.0); Red Blood Cells 3.17 10^6/uL (4.0-5.20); Red Cell Distribution Width 15.6 % (11.8-14.3)
[2023-10-04 05:50] LABS: Magnesium 1.6 mg/dL (1.6-2.6)
[2023-10-04] MEDS: GABAPENTIN 300 MG CAP PO SCH ×3 (06:17→23:01)
[2023-10-04] MEDS: LEVOTHYROXINE SODIUM 50 MCG TAB PO SCH (06:17)
[2023-10-04] MEDS: ALPRAZolam 0.25 MG TAB PO PRN ×3 (07:11→20:23)
[2023-10-04] MEDS: CIPROFLOXACIN HYDROCHLORIDE 250 MG TAB PO SCH ×2 (10:00→22:00)
[2023-10-04] MEDS: SODIUM CHLORIDE 0.9% 1,000 ML IV SCH (10:15)
[2023-10-04 10:21] VITALS: PULSE 78; RESP 18; O2SAT 96
[2023-10-04] MEDS: CITALOPRAM HYDROBR 20 MG TAB PO SCH (10:54)
[2023-10-04] MEDS: lamoTRIgine 25 MG TAB PO SCH ×2 (10:55→23:01)
[2023-10-04] MEDS: ACETAMINOPHEN 325 MG TAB PO PRN (13:20)
[2023-10-04] MEDS: ZOLPIDEM TARTRATE 5 MG TAB PO PRN (23:00)
[2023-10-05] MEDS: SODIUM CHLORIDE 0.9% 1,000 ML IV SCH ×2 (03:20→19:35)
[2023-10-05] MEDS: LEVOTHYROXINE SODIUM 50 MCG TAB PO SCH (06:36)
[2023-10-05] MEDS: GABAPENTIN 300 MG CAP PO SCH ×3 (06:36→21:21)
[2023-10-05] MEDS: ALPRAZolam 0.25 MG TAB PO PRN ×2 (08:25→14:38)
[2023-10-05] MEDS: CIPROFLOXACIN HYDROCHLORIDE 250 MG TAB PO SCH ×2 (10:00→21:22)
[2023-10-05] MEDS: CITALOPRAM HYDROBR 20 MG TAB PO SCH (10:44)
[2023-10-05] MEDS: lamoTRIgine 25 MG TAB PO SCH ×2 (10:44→21:21)
[2023-10-05 11:05] VITALS: RESP 18; O2SAT 98
[2023-10-05 20:00] VITALS: PULSE 74
[2023-10-05] MEDS: HYDROcodone-ACET 5/325MG TAB PO PRN (20:12)
[2023-10-05 22:00] VITALS: BP 154/92; PULSE 72; RESP 18; TEMP 98.4; O2SAT 95
[2023-10-05] MEDS: ZOLPIDEM TARTRATE 5 MG TAB PO PRN (22:27)
[2023-10-06] MEDS: SODIUM CHLORIDE 0.9% 1,000 ML IV SCH (00:24)
[2023-10-06] MEDS: ALPRAZolam 0.25 MG TAB PO PRN ×2 (00:24→09:48)
[2023-10-06 05:00] VITALS: BP 121/74; PULSE 72; RESP 18; TEMP 98.1; O2SAT 96
[2023-10-06] MEDS: LEVOTHYROXINE SODIUM 50 MCG TAB PO SCH (06:08)
[2023-10-06] MEDS: GABAPENTIN 300 MG CAP PO SCH ×2 (06:08→14:20)
[2023-10-06 06:31] LABS: Basophils # (auto) 0 10 ^3/uL (0-0.2); Basophils % (auto) 0.8 % (0.0-2.0); Eosinophils # (auto) 0.2 10 ^3/uL (0-0.8); Eosinophils % (auto) 4.4 % (0.0-7.0); Hematocrit 30.8 % (36.0-46.0); Hemoglobin 10.3 g/dL (12.2-16.2); Lymphocytes # (auto) 1.7 10 ^3/uL (0.4-5.4); Lymphocytes % (auto) 33.9 % (10.0-50.0); Mean Corpuscular Hemoglobin 30.9 pg (28.0-32.0); Mean Corpuscular Hgb Conc. 33.5 g/dL (32.0-36.0); Mean Corpuscular Volume 92.4 fL (80.0-100.0); Monocytes # (auto) 0.7 10 ^3/uL (0-1.3); Monocytes % (auto) 13.2 % (0.0-12.0); Neutrophils # (auto) 2.4 10 ^3/uL (1.6-8.6); Neutrophils % (auto) 47.7 % (37.0-80.0); Red Blood Cells 3.33 10^6/uL (4.0-5.20); Red Cell Distribution Width 15.6 % (11.8-14.3); White Blood Cell 5.1 10^3/uL (4.4-10.8)
[2023-10-06 06:40] LABS: Anion Gap 7 (5-15); Carbon Dioxide 26 mmol/L (20-30); Chloride 98 mmol/L (98-107); Potassium 3.5 mmol/L (3.5-5.1); Sodium 131 mmol/L (136-145)
[2023-10-06 06:41] LABS: Calcium 6.8 mg/dL (8.5-10.1)
[2023-10-06 06:46] LABS: Glucose 73 mg/dL (74-106)
[2023-10-06 06:51] LABS: BUN/Creatinine Ratio 10.4 (10.0-20.0); Blood Urea Nitrogen < 5 mg/dL (9-23)
[2023-10-06 07:30] VITALS: PULSE 73; RESP 18; O2SAT 96
[2023-10-06 08:00] VITALS: PULSE 80
[2023-10-06 09:00] VITALS: BP 130/75; PULSE 73; RESP 19; TEMP 98; O2SAT 96
[2023-10-06] MEDS: CITALOPRAM HYDROBR 20 MG TAB PO SCH (09:48)
[2023-10-06] MEDS: CIPROFLOXACIN HYDROCHLORIDE 250 MG TAB PO SCH (09:48)
[2023-10-06] MEDS: lamoTRIgine 25 MG TAB PO SCH (09:48)
[2023-10-06] MEDS ORDERED: HYDR-4902 PO (12:18)
[2023-10-06] MEDS ORDERED: CIPR-273 PO (12:18)
[2023-10-06] MEDS: HYDROcodone-ACET 5/325MG TAB PO PRN (12:32)
[2023-10-06 13:00] VITALS: BP 136/87; PULSE 74; RESP 19; TEMP 97.9; O2SAT 95
== END 2023-10-06 16:45 | disposition home health service (06) | DRG 641 ==
LOC: EDBD 07:00 → ER 07:00 → TELE 13:35 → TELE-WESTW 10-05 13:05
PROVIDERS: ADMIT Internal Medicine Geriatric Medicine; ATTEND Internal Medicine Geriatric Medicine
DX: E87.1 Hypo-osmolality and hyponatremia (principal); N39.0 Urinary tract infection, site not specified; E03.9 Hypothyroidism, unspecified; F43.10 Post-traumatic stress disorder, unspecified; F31.9 Bipolar disorder, unspecified; G47.00 Insomnia, unspecified; E78.5 Hyperlipidemia, unspecified; D64.9 Anemia, unspecified; W06.XXXA Fall from bed, initial encounter; S00.81XA Abrasion of other part of head, initial encounter; Y93.89 Activity, other specified; Y92.89 Other specified places as the place of occurrence of the external cause; Y99.8 Other external cause status; Z88.0 Allergy status to penicillin; Z88.8 Allergy status to other drugs, medicaments and biological substances
CPT/HCPCS: 36415; 70450; 71045; 72125; 73562; 80048; 80053; 80061; 81001; 83690; 83735; 84443; 84484; 85025; 85610; 85730; 87040; 87081; 87086; 87088; 87186; 93005; 97110; 97116; 97163; 97530; G0378; J0696; J2405

== ENCOUNTER 2023-11-02 04:47 | Inpatient (IN) | payer OTHER ==
[~2023-11-02] VITALS: Ht 170.2 cm; Wt 138.2 kg
[~2023-11-02 04:47] MED LIST changes: +CIPR-273 PO; +HYDR-4902 PO; -LEVO500T31 PO
[2023-11-02 05:29] LABS: Basophils # (auto) 0 10 ^3/uL (0-0.2); Basophils % (auto) 0.5 % (0.0-2.0); Eosinophils # (auto) 0 10 ^3/uL (0-0.8); Eosinophils % (auto) 0.5 % (0.0-7.0); Hematocrit 32.6 % (36.0-46.0); Hemoglobin 10.9 g/dL (12.2-16.2); Lymphocytes # (auto) 1.3 10 ^3/uL (0.4-5.4); Lymphocytes % (auto) 16.3 % (10.0-50.0); Mean Corpuscular Hemoglobin 30.9 pg (28.0-32.0); Mean Corpuscular Hgb Conc. 33.6 g/dL (32.0-36.0); Mean Corpuscular Volume 92.1 fL (80.0-100.0); Monocytes # (auto) 0.9 10 ^3/uL (0-1.3); Monocytes % (auto) 10.7 % (0.0-12.0); Neutrophils # (auto) 5.9 10 ^3/uL (1.6-8.6); Nucleated Red Blood Cells % 0.1 %; Red Blood Cells 3.54 10^6/uL (4.0-5.20); Red Cell Distribution Width 15.4 % (11.8-14.3); White Blood Cell 8.2 10^3/uL (4.4-10.8)
[2023-11-02 05:43] LABS: INR 1.04 (0.9-1.15); Partial Thromboplastin Time 33.6 SEC (24.5-34.5); Prothrombin Time 10.9 sec (9.3-11.8)
[2023-11-02 06:19] LABS: Alanine Aminotransferase 10 U/L (7-40); Albumin 4.4 g/dL (3.2-4.8); Alkaline Phosphatase 79 U/L (46-116); Anion Gap 8 (5-15); Aspartate Aminotransferase 19 U/L (13-40); Bilirubin, Total 0.8 mg/dL (0.2-1.0); Calcium 8.8 mg/dL (8.7-10.4); Carbon Dioxide 25 mmol/L (20-30); Chloride 90 mmol/L (98-107); Glucose 89 mg/dL (74-106); Magnesium 1.4 mg/dL (1.6-2.6); Potassium 4.1 mmol/L (3.5-5.1); Sodium 123 mmol/L (136-145); Total Protein 7.1 g/dL (5.7-8.2)
[2023-11-02 06:24] LABS: BUN/Creatinine Ratio 6.1 (10.0-20.0); Blood Urea Nitrogen < 5 mg/dL (9-23)
[2023-11-02] MEDS ORDERED: MAGNESIUM SULFATE 1GM/100ML 100 ML IV SCH (11:45)
[2023-11-02] MEDS ORDERED: DEXTROSE (50%) 50ML SYRG IV PRN (12:15)
[2023-11-02] MEDS ORDERED: AZITHROMYCIN 500MG/ 250ML 250 ML IV ONE (12:15)
[2023-11-02] MEDS ORDERED: cefTRIAXone 1GM/50ML D5W 50 ML IV ONE (12:15)
[2023-11-02] MEDS ORDERED: ALBUTEROL SULF 2.5 MG/0.5ML(0.5%) NEB SOLN NEB PRN (12:15)
[2023-11-02 12:58] LABS: Urine Bacteria NONE SEEN /hpf (None Seen); Urine Blood Negative /uL (Negative); Urine Clarity Clear (Clear); Urine Color Straw (Yellow); Urine Protein, UAD Negative (Negative); Urine Urobilinogen Normal (Negative); Urine WBC 2 /hpf (0 - 5)
[2023-11-02] MEDS: InsuLIN REG 1unit/0.01ml Soln (100units/ml) SC SCH ×2 (17:00→22:00)
[2023-11-02] MEDS: SODIUM CHLORIDE 0.9% 1,000 ML IV SCH (18:17)
[2023-11-02] MEDS: ACCU-CHEK COMFORT CURVE STRIP VI SCH ×2 (19:21→22:50)
[2023-11-02 19:41] VITALS: PULSE 97; RESP 20; O2SAT 96
[2023-11-02] MEDS: MAGNESIUM SULFATE 1GM/100ML 100 ML IV SCH ×3 (19:42→21:11)
[2023-11-02] MEDS: DOXYCYCLINE 100MG/250ML 250 ML IV SCH ×2 (19:43→21:40)
[2023-11-02 22:42] VITALS: BP 164/95; PULSE 89; RESP 18; TEMP 98.1; O2SAT 97
[2023-11-02] MEDS ORDERED: TEMAZEPAM 15 MG CAP PO ONE (23:00)
[2023-11-02] MEDS ORDERED: BUPR200T2 PO (23:21)
[2023-11-02] MEDS: hydrALAZINE HCL 20 MG/ML VL IV PRN (23:25)
[2023-11-02 23:37] VITALS: BP 164/95; PULSE 91; RESP 19; TEMP 98.1; O2SAT 97
[2023-11-03] VITALS (9 sets, daily range): BP systolic 147–166; BP diastolic 75–97; PULSE 91–106; RESP 18–20; TEMP 97.5–98.4; O2SAT 96–98
[2023-11-03] MEDS: ACETAMINOPHEN 325 MG TAB PO PRN (04:40)
[2023-11-03] MEDS: SODIUM CHLORIDE 0.9% 1,000 ML IV SCH ×3 (04:55→11:30)
[2023-11-03] MEDS: ACCU-CHEK COMFORT CURVE STRIP VI SCH ×4 (06:02→20:41)
[2023-11-03] MEDS: InsuLIN REG 1unit/0.01ml Soln (100units/ml) SC SCH ×4 (06:03→20:41)
[2023-11-03 06:17] LABS: Basophils # (auto) 0 10 ^3/uL (0-0.2); Basophils % (auto) 0.4 % (0.0-2.0); Eosinophils # (auto) 0.1 10 ^3/uL (0-0.8); Eosinophils % (auto) 0.7 % (0.0-7.0); Hematocrit 31.6 % (36.0-46.0); Hemoglobin 10.5 g/dL (12.2-16.2); Lymphocytes # (auto) 1.8 10 ^3/uL (0.4-5.4); Lymphocytes % (auto) 21.5 % (10.0-50.0); Mean Corpuscular Hemoglobin 30.3 pg (28.0-32.0); Mean Corpuscular Hgb Conc. 33.2 g/dL (32.0-36.0); Mean Corpuscular Volume 91.5 fL (80.0-100.0); Monocytes # (auto) 1.2 10 ^3/uL (0-1.3); Monocytes % (auto) 14.3 % (0.0-12.0); Neutrophils # (auto) 5.3 10 ^3/uL (1.6-8.6); Neutrophils % (auto) 63.1 % (37.0-80.0); Red Blood Cells 3.46 10^6/uL (4.0-5.20); Red Cell Distribution Width 15.6 % (11.8-14.3); White Blood Cell 8.3 10^3/uL (4.4-10.8)
[2023-11-03 06:35] LABS: Alkaline Phosphatase 72 U/L (46-116); Anion Gap 9 (5-15); Blood Urea Nitrogen 6 mg/dL (9-23); Calcium 8.6 mg/dL (8.5-10.1); Carbon Dioxide 22 mmol/L (20-30); Chloride 87 mmol/L (98-107); Glucose 94 mg/dL (74-106); Potassium 3.4 mmol/L (3.5-5.1)
[2023-11-03 06:36] LABS: Aspartate Aminotransferase 17 U/L (13-40)
[2023-11-03 06:37] LABS: Albumin 3.7 g/dL (3.2-4.8); Bilirubin, Total 0.6 mg/dL (0.2-1.0)
[2023-11-03 06:44] LABS: Alanine Aminotransferase < 9 U/L (7-40); Sodium 118 mmol/L (136-145)
[2023-11-03] MEDS ORDERED: SODIUM CHLORIDE 1 GM TAB PO ONE (08:15)
[2023-11-03] MEDS: cefTRIAXone 1GM/50ML D5W 50 ML IV SCH (08:29)
[2023-11-03] MEDS: HYDROcodone-ACET 5/325MG TAB PO PRN (08:33)
[2023-11-03] MEDS: hydrALAZINE HCL 20 MG/ML VL IV PRN (08:34)
[2023-11-03] MEDS ORDERED: ONDANSETRON ODT 4 MG TAB PO PRN (08:45)
[2023-11-03] MEDS ORDERED: ONDANSETRON HCL 4 MG/2 ML VIAL IV PRN (09:00)
[2023-11-03] MEDS ORDERED: AZITHROMYCIN 500MG/ 250ML 250 ML IV SCH (10:00)
[2023-11-03] MEDS ORDERED: ALPRAZolam 0.5 MG TAB PO SCH (10:00)
[2023-11-03] MEDS: ENOXAPARIN SOD 40 MG/0.4 ML SYRINGE SC SCH (10:34)
[2023-11-03] MEDS: ALPRAZolam 0.5 MG TAB PO PRN ×2 (10:34→21:02)
[2023-11-03] MEDS ORDERED: POTASSIUM EFFERVESENT TAB 25 MEQ PO ONE (10:45)
[2023-11-03] MEDS ORDERED: DOXYCYCLINE 100 MG TAB/CAP PO ONE (11:00)
[2023-11-03] MEDS: FUROSEMIDE 40 MG/4 ML VIAL IV SCH (18:01)
[2023-11-03] MEDS: DOXYCYCLINE 100 MG TAB/CAP PO SCH (21:02)
[2023-11-03] MEDS: SODIUM CHLORIDE 1 GM TAB PO SCH (21:22)
[2023-11-03] MEDS: MUPIROCIN 2% OINT 15gm or 22gm FOR MRSA NARES EACHNOSTRI SCH (21:28)
[2023-11-04] VITALS (9 sets, daily range): BP systolic 125–169; BP diastolic 70–103; PULSE 55–104; RESP 18–22; TEMP 97.9–98.4; O2SAT 94–97
[2023-11-04] MEDS: FUROSEMIDE 40 MG/4 ML VIAL IV SCH ×2 (05:32→17:31)
[2023-11-04] MEDS: ACCU-CHEK COMFORT CURVE STRIP VI SCH ×4 (05:39→21:33)
[2023-11-04] MEDS: InsuLIN REG 1unit/0.01ml Soln (100units/ml) SC SCH ×4 (05:39→21:37)
[2023-11-04] MEDS: cefTRIAXone 1GM/50ML D5W 50 ML IV SCH (08:49)
[2023-11-04] MEDS: ENOXAPARIN SOD 40 MG/0.4 ML SYRINGE SC SCH (08:49)
[2023-11-04] MEDS: MUPIROCIN 2% OINT 15gm or 22gm FOR MRSA NARES EACHNOSTRI SCH ×2 (08:50→21:32)
[2023-11-04] MEDS: DOXYCYCLINE 100 MG TAB/CAP PO SCH ×2 (08:50→21:32)
[2023-11-04] MEDS: SODIUM CHLORIDE 1 GM TAB PO SCH ×2 (08:50→21:32)
[2023-11-04] MEDS: hydrALAZINE HCL 20 MG/ML VL IV PRN ×2 (08:51→17:31)
[2023-11-04] MEDS: SODIUM CHLORIDE 0.9% 1,000 ML IV SCH (11:41)
[2023-11-04] MEDS: ALPRAZolam 0.5 MG TAB PO PRN (23:01)
[2023-11-05] VITALS (7 sets, daily range): BP systolic 118–166; BP diastolic 72–99; PULSE 94–106; RESP 16–20; TEMP 97.7–98.3; O2SAT 92–100
[2023-11-05] MEDS: FUROSEMIDE 40 MG/4 ML VIAL IV SCH ×2 (06:22→18:04)
[2023-11-05] MEDS: ACCU-CHEK COMFORT CURVE STRIP VI SCH ×4 (06:22→21:38)
[2023-11-05] MEDS: InsuLIN REG 1unit/0.01ml Soln (100units/ml) SC SCH ×4 (06:23→21:38)
[2023-11-05] MEDS: cefTRIAXone 1GM/50ML D5W 50 ML IV SCH (08:44)
[2023-11-05] MEDS: MUPIROCIN 2% OINT 15gm or 22gm FOR MRSA NARES EACHNOSTRI SCH ×2 (10:04→21:32)
[2023-11-05] MEDS: DOXYCYCLINE 100 MG TAB/CAP PO SCH ×2 (10:04→21:26)
[2023-11-05] MEDS: SODIUM CHLORIDE 1 GM TAB PO SCH ×2 (10:04→21:27)
[2023-11-05] MEDS: ENOXAPARIN SOD 40 MG/0.4 ML SYRINGE SC SCH (10:04)
[2023-11-05] MEDS: SODIUM CHLORIDE 0.9% 1,000 ML IV SCH ×2 (18:05→21:45)
[2023-11-05] MEDS: ALPRAZolam 0.5 MG TAB PO PRN (21:39)
[2023-11-06 05:34] VITALS: BP 106/75; PULSE 90; RESP 20; TEMP 97.4; O2SAT 96
[2023-11-06] MEDS: FUROSEMIDE 40 MG/4 ML VIAL IV SCH ×2 (05:54→18:14)
[2023-11-06] MEDS: ACCU-CHEK COMFORT CURVE STRIP VI SCH ×4 (06:00→21:25)
[2023-11-06] MEDS: InsuLIN REG 1unit/0.01ml Soln (100units/ml) SC SCH ×4 (06:01→21:25)
[2023-11-06 08:00] VITALS: BP 101/64; PULSE 91; PULSE 92; RESP 18; TEMP 98.3; O2SAT 96
[2023-11-06 09:00] VITALS: BP 101/64; PULSE 92; RESP 18; TEMP 98.3; O2SAT 96
[2023-11-06] MEDS: cefTRIAXone 1GM/50ML D5W 50 ML IV SCH (09:48)
[2023-11-06] MEDS: SODIUM CHLORIDE 1 GM TAB PO SCH ×2 (09:48→21:25)
[2023-11-06] MEDS: DOXYCYCLINE 100 MG TAB/CAP PO SCH ×2 (09:48→21:26)
[2023-11-06] MEDS: ENOXAPARIN SOD 40 MG/0.4 ML SYRINGE SC SCH (09:49)
[2023-11-06] MEDS: MUPIROCIN 2% OINT 15gm or 22gm FOR MRSA NARES EACHNOSTRI SCH ×2 (09:49→21:26)
[2023-11-06 13:00] VITALS: BP 104/66; PULSE 85; RESP 18; TEMP 97.6; O2SAT 93
[2023-11-06] MEDS: ALPRAZolam 0.5 MG TAB PO PRN (14:01)
[2023-11-06 16:47] VITALS: BP 107/70; PULSE 91; RESP 16; TEMP 98.1; O2SAT 95
[2023-11-06 20:00] VITALS: PULSE 96
[2023-11-07] MEDS: ALPRAZolam 0.5 MG TAB PO PRN ×2 (01:35→14:37)
[2023-11-07] MEDS: SODIUM CHLORIDE 0.9% 1,000 ML IV SCH (01:42)
[2023-11-07 05:00] VITALS: BP 108/67; PULSE 77; RESP 16; TEMP 97.6; O2SAT 93
[2023-11-07] MEDS: FUROSEMIDE 40 MG/4 ML VIAL IV SCH ×2 (06:12→17:54)
[2023-11-07] MEDS: InsuLIN REG 1unit/0.01ml Soln (100units/ml) SC SCH ×2 (06:14→11:30)
[2023-11-07] MEDS: ACCU-CHEK COMFORT CURVE STRIP VI SCH ×2 (06:14→11:45)
[2023-11-07 08:00] VITALS: BP 108/69; PULSE 72; PULSE 81; RESP 17; TEMP 97.5
[2023-11-07] MEDS: cefTRIAXone 1GM/50ML D5W 50 ML IV SCH (08:43)
[2023-11-07] MEDS: DOXYCYCLINE 100 MG TAB/CAP PO SCH ×2 (08:43→21:21)
[2023-11-07] MEDS: MUPIROCIN 2% OINT 15gm or 22gm FOR MRSA NARES EACHNOSTRI SCH ×2 (08:44→21:27)
[2023-11-07] MEDS: ENOXAPARIN SOD 40 MG/0.4 ML SYRINGE SC SCH (08:44)
[2023-11-07 09:00] VITALS: BP 108/69; PULSE 81; RESP 17; TEMP 95.2; O2SAT 99
[2023-11-07] MEDS: SODIUM CHLORIDE 1 GM TAB PO SCH ×2 (10:35→21:21)
[2023-11-07 13:30] VITALS: BP 109/69; PULSE 84; RESP 17; TEMP 97.6; O2SAT 97
[2023-11-07 16:38] VITALS: BP 108/65; PULSE 91; RESP 16; TEMP 96.2; O2SAT 96
[2023-11-07] MEDS: Juven Orange Powder PACKET 27.5gm PO SCH (18:19)
[2023-11-07 20:00] VITALS: PULSE 97
[2023-11-07] MEDS: Ensure Enlive Vanilla 8oz Bottle PO SCH (21:27)
[2023-11-08] VITALS (7 sets, daily range): BP systolic 101–114; BP diastolic 58–75; PULSE 79–97; RESP 15–18; TEMP 97.5–98.8; O2SAT 94–98
[2023-11-08] MEDS: ALPRAZolam 0.5 MG TAB PO PRN ×2 (02:21→18:06)
[2023-11-08] MEDS: FUROSEMIDE 40 MG/4 ML VIAL IV SCH ×2 (05:53→18:06)
[2023-11-08 06:15] LABS: Basophils # (auto) 0 10 ^3/uL (0-0.2); Basophils % (auto) 0.3 % (0.0-2.0); Eosinophils # (auto) 0 10 ^3/uL (0-0.8); Eosinophils % (auto) 0.4 % (0.0-7.0); Hematocrit 30.6 % (36.0-46.0); Hemoglobin 10.3 g/dL (12.2-16.2); Lymphocytes % (auto) 15.2 % (10.0-50.0); Mean Corpuscular Hemoglobin 30.7 pg (28.0-32.0); Mean Corpuscular Hgb Conc. 33.5 g/dL (32.0-36.0); Mean Corpuscular Volume 91.5 fL (80.0-100.0); Monocytes # (auto) 0.9 10 ^3/uL (0-1.3); Monocytes % (auto) 13.2 % (0.0-12.0); Neutrophils # (auto) 4.9 10 ^3/uL (1.6-8.6); Neutrophils % (auto) 70.9 % (37.0-80.0); Nucleated Red Blood Cells % 0.1 %; Red Blood Cells 3.35 10^6/uL (4.0-5.20); Red Cell Distribution Width 14.9 % (11.8-14.3); White Blood Cell 6.9 10^3/uL (4.4-10.8)
[2023-11-08 06:18] LABS: Anion Gap 8 (5-15); Carbon Dioxide 31 mmol/L (20-30); Chloride 86 mmol/L (98-107); Potassium 2.8 mmol/L (3.5-5.1)
[2023-11-08 06:19] LABS: Calcium 8.7 mg/dL (8.7-10.4)
[2023-11-08 06:24] LABS: Blood Urea Nitrogen 17 mg/dL (9-23); Glucose 106 mg/dL (74-106)
[2023-11-08 06:25] LABS: Sodium 125 mmol/L (136-145)
[2023-11-08] MEDS: cefTRIAXone 1GM/50ML D5W 50 ML IV SCH (08:57)
[2023-11-08] MEDS: MUPIROCIN 2% OINT 15gm or 22gm FOR MRSA NARES EACHNOSTRI SCH (08:57)
[2023-11-08] MEDS: DOXYCYCLINE 100 MG TAB/CAP PO SCH ×2 (08:57→21:16)
[2023-11-08] MEDS: ENOXAPARIN SOD 40 MG/0.4 ML SYRINGE SC SCH (08:57)
[2023-11-08] MEDS: Juven Orange Powder PACKET 27.5gm PO SCH ×2 (08:58→18:00)
[2023-11-08] MEDS: Ensure Enlive Vanilla 8oz Bottle PO SCH ×2 (08:58→21:25)
[2023-11-08] MEDS: SODIUM CHLORIDE 1 GM TAB PO SCH ×2 (11:15→21:16)
[2023-11-08] MEDS ORDERED: POTASSIUM CHL 20 Meq TABLET PO ONE (12:30)
[2023-11-08] MEDS ORDERED: POTASSIUM EFFERVESENT TAB 25 MEQ GT ONE ×2 (13:15→15:15)
[2023-11-08] MEDS: SODIUM CHLORIDE 0.9% 1,000 ML IV SCH ×2 (13:35→18:06)
[2023-11-08] MEDS: ACETAMINOPHEN 325 MG TAB PO PRN (20:02)
[2023-11-09] VITALS (7 sets, daily range): BP systolic 99–136; BP diastolic 58–74; PULSE 77–84; RESP 16–20; TEMP 97.3–98; O2SAT 0–98
[2023-11-09] MEDS: FUROSEMIDE 40 MG/4 ML VIAL IV SCH ×2 (05:24→17:25)
[2023-11-09] MEDS: HYDROcodone-ACET 5/325MG TAB PO PRN ×3 (05:24→20:24)
[2023-11-09 05:28] LABS: Basophils # (auto) 0 10 ^3/uL (0-0.2); Basophils % (auto) 0.9 % (0.0-2.0); Eosinophils # (auto) 0.1 10 ^3/uL (0-0.8); Eosinophils % (auto) 0.9 % (0.0-7.0); Hematocrit 30.9 % (36.0-46.0); Hemoglobin 10.2 g/dL (12.2-16.2); Lymphocytes # (auto) 1.2 10 ^3/uL (0.4-5.4); Lymphocytes % (auto) 21.2 % (10.0-50.0); Mean Corpuscular Hemoglobin 30.6 pg (28.0-32.0); Mean Corpuscular Hgb Conc. 33.1 g/dL (32.0-36.0); Mean Corpuscular Volume 92.4 fL (80.0-100.0); Monocytes # (auto) 0.7 10 ^3/uL (0-1.3); Monocytes % (auto) 12.7 % (0.0-12.0); Neutrophils # (auto) 3.6 10 ^3/uL (1.6-8.6); Neutrophils % (auto) 64.3 % (37.0-80.0); Red Blood Cells 3.34 10^6/uL (4.0-5.20); Red Cell Distribution Width 15.5 % (11.8-14.3); White Blood Cell 5.6 10^3/uL (4.4-10.8)
[2023-11-09 05:38] LABS: Chloride 87 mmol/L (98-107); Potassium 3.4 mmol/L (3.5-5.1); Sodium 127 mmol/L (136-145)
[2023-11-09 05:39] LABS: Anion Gap 5 (5-15); Calcium 8.9 mg/dL (8.5-10.1); Carbon Dioxide 35 mmol/L (20-30)
[2023-11-09 05:44] LABS: BUN/Creatinine Ratio 23.8 (10.0-20.0); Blood Urea Nitrogen 19 mg/dL (9-23); Glucose 111 mg/dL (74-106)
[2023-11-09] MEDS: Juven Orange Powder PACKET 27.5gm PO SCH ×2 (08:00→20:27)
[2023-11-09] MEDS: cefTRIAXone 1GM/50ML D5W 50 ML IV SCH (09:07)
[2023-11-09] MEDS: DOXYCYCLINE 100 MG TAB/CAP PO SCH ×2 (09:08→22:01)
[2023-11-09] MEDS: ENOXAPARIN SOD 40 MG/0.4 ML SYRINGE SC SCH (09:08)
[2023-11-09] MEDS: SODIUM CHLORIDE 1 GM TAB PO SCH ×2 (09:17→22:01)
[2023-11-09] MEDS: ALPRAZolam 0.5 MG TAB PO PRN ×2 (09:17→22:01)
[2023-11-09] MEDS: Ensure Enlive Vanilla 8oz Bottle PO SCH ×2 (10:00→22:00)
[2023-11-09] MEDS: SODIUM CHLORIDE 0.9% 1,000 ML IV SCH ×2 (15:28→22:01)
[2023-11-10] MEDS: HYDROcodone-ACET 5/325MG TAB PO PRN ×2 (03:57→17:49)
[2023-11-10 05:00] VITALS: BP 126/76; PULSE 90; RESP 16; TEMP 97.6; O2SAT 97
[2023-11-10] MEDS: FUROSEMIDE 40 MG/4 ML VIAL IV SCH ×2 (05:36→17:38)
[2023-11-10 05:52] LABS: Basophils # (auto) 0.1 10 ^3/uL (0-0.2); Eosinophils # (auto) 0.1 10 ^3/uL (0-0.8); Eosinophils % (auto) 1.3 % (0.0-7.0); Hematocrit 25.9 % (36.0-46.0); Hemoglobin 8.6 g/dL (12.2-16.2); Lymphocytes # (auto) 1.6 10 ^3/uL (0.4-5.4); Lymphocytes % (auto) 30.3 % (10.0-50.0); Mean Corpuscular Hemoglobin 31.4 pg (28.0-32.0); Mean Corpuscular Hgb Conc. 33.3 g/dL (32.0-36.0); Mean Corpuscular Volume 94.3 fL (80.0-100.0); Monocytes # (auto) 0.6 10 ^3/uL (0-1.3); Monocytes % (auto) 11.7 % (0.0-12.0); Neutrophils # (auto) 2.9 10 ^3/uL (1.6-8.6); Neutrophils % (auto) 55.7 % (37.0-80.0); Nucleated Red Blood Cells % 0.1 %; Red Blood Cells 2.75 10^6/uL (4.0-5.20); Red Cell Distribution Width 15.4 % (11.8-14.3); White Blood Cell 5.3 10^3/uL (4.4-10.8)
[2023-11-10 05:58] LABS: Chloride 99 mmol/L (98-107); Potassium 2.7 mmol/L (3.5-5.1)
[2023-11-10 05:59] LABS: Anion Gap 7 (5-15); Carbon Dioxide 26 mmol/L (20-30)
[2023-11-10 06:00] LABS: Calcium 6.8 mg/dL (8.7-10.4)
[2023-11-10 06:04] LABS: Glucose 84 mg/dL (74-106)
[2023-11-10 06:25] LABS: BUN/Creatinine Ratio 28.9 (10.0-20.0); Blood Urea Nitrogen 13 mg/dL (9-23); Sodium 132 mmol/L (136-145)
[2023-11-10 08:43] VITALS: BP 121/80; PULSE 76; RESP 20; TEMP 98.9; O2SAT 97
[2023-11-10] MEDS: Ensure Enlive Vanilla 8oz Bottle PO SCH ×2 (09:12→22:00)
[2023-11-10] MEDS: SODIUM CHLORIDE 1 GM TAB PO SCH ×2 (09:12→21:32)
[2023-11-10] MEDS: ENOXAPARIN SOD 40 MG/0.4 ML SYRINGE SC SCH (09:12)
[2023-11-10] MEDS: Juven Orange Powder PACKET 27.5gm PO SCH ×2 (09:12→17:38)
[2023-11-10] MEDS: cefTRIAXone 1GM/50ML D5W 50 ML IV SCH (09:12)
[2023-11-10] MEDS: DOXYCYCLINE 100 MG TAB/CAP PO SCH ×2 (09:12→21:32)
[2023-11-10] MEDS: POTASSIUM CHL 20MEQ/100ML 100 ML IV SCH ×4 (12:58→23:52)
[2023-11-10] MEDS: SODIUM CHLORIDE 0.9% 1,000 ML IV SCH (12:58)
[2023-11-10 13:00] VITALS: BP 118/73; PULSE 80; RESP 20; TEMP 98.4; O2SAT 97
[2023-11-10 16:57] VITALS: BP 130/79; PULSE 84; RESP 20; TEMP 97.4; O2SAT 97
[2023-11-10 20:00] VITALS: O2SAT 0
[2023-11-10] MEDS: ALPRAZolam 0.5 MG TAB PO PRN (21:39)
[2023-11-10 21:50] VITALS: BP 115/77; PULSE 86; RESP 18; TEMP 98.1; O2SAT 98
[2023-11-11] VITALS (7 sets, daily range): BP systolic 107–123; BP diastolic 65–75; PULSE 79–89; RESP 16–20; TEMP 96.9–98.9; O2SAT 0–99
[2023-11-11] MEDS ORDERED: POTASSIUM CHL 20MEQ/100ML 100 ML IV SCH
[2023-11-11] MEDS: FUROSEMIDE 40 MG/4 ML VIAL IV SCH ×2 (05:38→18:12)
[2023-11-11] MEDS: SODIUM CHLORIDE 0.9% 1,000 ML IV SCH (05:38)
[2023-11-11 06:57] LABS: Basophils # (auto) 0.1 10 ^3/uL (0-0.2); Basophils % (auto) 1.2 % (0.0-2.0); Eosinophils # (auto) 0.1 10 ^3/uL (0-0.8); Eosinophils % (auto) 1.1 % (0.0-7.0); Hematocrit 27.3 % (36.0-46.0); Lymphocytes # (auto) 1.4 10 ^3/uL (0.4-5.4); Lymphocytes % (auto) 28.2 % (10.0-50.0); Mean Corpuscular Hemoglobin 30.6 pg (28.0-32.0); Mean Corpuscular Hgb Conc. 32.9 g/dL (32.0-36.0); Monocytes # (auto) 0.6 10 ^3/uL (0-1.3); Monocytes % (auto) 12.5 % (0.0-12.0); Neutrophils # (auto) 2.7 10 ^3/uL (1.6-8.6); Red Blood Cells 2.93 10^6/uL (4.0-5.20); Red Cell Distribution Width 15.5 % (11.8-14.3); White Blood Cell 4.8 10^3/uL (4.4-10.8)
[2023-11-11 06:58] LABS: Anion Gap 5 (5-15); Carbon Dioxide 30 mmol/L (20-30); Chloride 98 mmol/L (98-107); Potassium 3.7 mmol/L (3.5-5.1); Sodium 133 mmol/L (136-145)
[2023-11-11 07:00] LABS: Calcium 8.3 mg/dL (8.5-10.1)
[2023-11-11 07:04] LABS: BUN/Creatinine Ratio 17.5 (10.0-20.0); Blood Urea Nitrogen 10 mg/dL (9-23); Glucose 96 mg/dL (74-106)
[2023-11-11] MEDS: Juven Orange Powder PACKET 27.5gm PO SCH ×2 (08:00→20:08)
[2023-11-11] MEDS: cefTRIAXone 1GM/50ML D5W 50 ML IV SCH (08:45)
[2023-11-11] MEDS: DOXYCYCLINE 100 MG TAB/CAP PO SCH (10:18)
[2023-11-11] MEDS: ENOXAPARIN SOD 40 MG/0.4 ML SYRINGE SC SCH (10:18)
[2023-11-11] MEDS: SODIUM CHLORIDE 1 GM TAB PO SCH ×2 (14:35→21:27)
[2023-11-11] MEDS: Ensure Enlive Vanilla 8oz Bottle PO SCH ×2 (14:37→21:35)
[2023-11-11] MEDS: HYDROcodone-ACET 5/325MG TAB PO PRN (21:27)
[2023-11-12 05:00] VITALS: BP 118/87; PULSE 83; RESP 18; TEMP 97.6; O2SAT 93
[2023-11-12 05:43] LABS: Basophils # (auto) 0.1 10 ^3/uL (0-0.2); Basophils % (auto) 0.7 % (0.0-2.0); Eosinophils # (auto) 0.1 10 ^3/uL (0-0.8); Eosinophils % (auto) 0.8 % (0.0-7.0); Hematocrit 30.4 % (36.0-46.0); Lymphocytes # (auto) 1.5 10 ^3/uL (0.4-5.4); Lymphocytes % (auto) 18.6 % (10.0-50.0); Mean Corpuscular Hemoglobin 30.8 pg (28.0-32.0); Mean Corpuscular Hgb Conc. 32.9 g/dL (32.0-36.0); Mean Corpuscular Volume 93.6 fL (80.0-100.0); Monocytes # (auto) 1.2 10 ^3/uL (0-1.3); Monocytes % (auto) 14.3 % (0.0-12.0); Neutrophils # (auto) 5.4 10 ^3/uL (1.6-8.6); Neutrophils % (auto) 65.6 % (37.0-80.0); Nucleated Red Blood Cells % 0.1 %; Red Blood Cells 3.25 10^6/uL (4.0-5.20); Red Cell Distribution Width 15.4 % (11.8-14.3); White Blood Cell 8.3 10^3/uL (4.4-10.8)
[2023-11-12] MEDS: FUROSEMIDE 40 MG/4 ML VIAL IV SCH (06:02)
[2023-11-12] MEDS: ALPRAZolam 0.5 MG TAB PO PRN (06:08)
[2023-11-12 06:31] LABS: Anion Gap 7 (5-15); Carbon Dioxide 31 mmol/L (20-30); Chloride 91 mmol/L (98-107); Potassium 3.3 mmol/L (3.5-5.1); Sodium 129 mmol/L (136-145)
[2023-11-12 06:37] LABS: Blood Urea Nitrogen 16 mg/dL (9-23); Glucose 105 mg/dL (74-106)
[2023-11-12 08:00] VITALS: PULSE 97; RESP 18; O2SAT 97
[2023-11-12] MEDS: Juven Orange Powder PACKET 27.5gm PO SCH (08:00)
[2023-11-12] MEDS: SODIUM CHLORIDE 1 GM TAB PO SCH (08:47)
[2023-11-12] MEDS: cefTRIAXone 1GM/50ML D5W 50 ML IV SCH (08:48)
[2023-11-12] MEDS: ENOXAPARIN SOD 40 MG/0.4 ML SYRINGE SC SCH (08:50)
[2023-11-12 09:00] VITALS: BP 109/71; PULSE 102; RESP 18; TEMP 98.3; O2SAT 97
[2023-11-12] MEDS: Ensure Enlive Vanilla 8oz Bottle PO SCH (10:00)
[2023-11-12] MEDS ORDERED: POTASSIUM CHL 20 Meq TABLET PO ONE (13:30)
[2023-11-12] MEDS ORDERED: SODIUM CHLORIDE 1 GM TAB PO ONE (13:30)
[2023-11-12 17:24] VITALS: BP 144/58; PULSE 74; RESP 16; TEMP 97.9; O2SAT 95
== END 2023-11-12 18:00 | disposition home health service (06) | DRG 194 ==
LOC: EDBD 04:47 → ER 04:47 → OVERFLOW 12:11 → TELE-CENTR 22:30 → CENTRAL 11-09 14:56
PROVIDERS: ADMIT Nurse Practitioner Family; ATTEND Internal Medicine
DX: J15.9 Unspecified bacterial pneumonia (principal); E87.1 Hypo-osmolality and hyponatremia; E03.9 Hypothyroidism, unspecified; R62.7 Adult failure to thrive; E66.9 Obesity, unspecified; E83.42 Hypomagnesemia; I11.0 Hypertensive heart disease with heart failure; E78.5 Hyperlipidemia, unspecified; F41.9 Anxiety disorder, unspecified; M25.561 Pain in right knee; I50.9 Heart failure, unspecified; Z68.22 Body mass index [BMI] 22.0-22.9, adult; Z88.0 Allergy status to penicillin; Z88.8 Allergy status to other drugs, medicaments and biological substances
CPT/HCPCS: 36415; 70450; 71045; 71250; 72125; 73562; 74176; 80048; 80053; 81001; 82962; 83735; 83880; 84443; 84484; 85025; 85379; 85610; 85730; 87081; 93005; 97110; 97116; 97163; 97530; 99291; G0378; J1815; J2405; J3480; J3490